=== PATIENT | female | born 1975 | race Caucasian/White ===

== ENCOUNTER 2023-08-26 07:15 | Emergency (ER) | payer BC, SELFPAY ==
[2023-08-26] VITALS (9 sets, daily range): BP systolic 116–140; BP diastolic 70–85; BMI 29.3
[2023-08-26] MEDS: NITROSTAT (SUBLINGUAL) 0.400000000000000022 MG SL (07:53)
[2023-08-26] MEDS: NSS 1000 IV (07:55)
[2023-08-26 08:07] LABS: % Basophils 1.3 % (0-2); % Eosinophils 6.5 % (0-6); % Immature Granulocytes 0.2 % (0-0.5); % Lymphocytes 25.7 % (20.5-51.1); % Monocytes 9.1 % (1.7-9.3); % Neutrophils 57.2 % (42.2-75.2); Absolute Basophils 0.1 10^3/uL (0-0.2); Absolute Eosinophils 0.6 10^3/uL (0-0.7); Absolute Lymphocytes 2.2 10^3/uL (1.2-3.4); Absolute Monocytes 0.8 10^3/uL (0.1-0.6); Absolute Neutrophils 4.9 10^3/uL (1.4-6.5); Hematocrit 43.1 % (37.0-47.0); Hemoglobin 14.6 g/dL (12.0-16.0); Mean Corp Hgb Conc. 33.9 g/dL (33.0-37.0); Mean Corpuscular Hgb 29.1 pg (27.0-31.0); Mean Platelet Volume 9.9 fL (7.4-10.4); Nucleated Red Blood Cells % 0 %; Platelet Count 335 10^3/uL (130-400); Red Blood Cell Count 5.01 10^6/uL (4.20-5.40); Red Cell Dist. Width 13.5 % (11.5-14.5); White Blood Cell Count 8.6 10^3/uL (4.8-10.8)
--- NOTE | 2023-08-26 08:08 | ED.GENMED ---
History of Present Illness
General
Chief Complaint: Abdominal Pain
Source: patient
Exam Limitations: none
Time Seen by Provider: 08/26/23 07:35
Nursing documentation reviewed up to this point in time: agreed with
Travel History
Have you had any contact with someone who has COVID-19?: No
Do you have any symptoms of coronavirus? Fever > 100 degrees, chills, cough, shortness of breath, sore throat, loss of taste or smell, muscle aches, or headache?: No
History of Present Illness
History of Present Illness:
48 yo female w h/o GERD, Schatzki ring needing dilation several times, last time 2019, food bolus, esophageal spasms, many food allergies, states since 3 p.m. yesterday after eating an Uncrustable sandwich had itching in throat and ears, 20 minutes
later started with 'esophageal spasms, ripping pain'all up in my chest, my left upper back and left ribs.' Pain waxes and wanes 3-6/10 worse with frequent 'spasms.' Worse when drinks anything, laying back, standing, better leaning forward. This a.m.
took a sip of water and pain 'shot across the back of my neck.' Took Benadryl, Mariam, Pepcid x 4 in the past 12 hours and Carafate with little relief only with Pepcid.
Denies SOB, n/v/d, is constipated.
She does take Ibuprofen 400 mg 3-4 times a day for leg and back pain on the days she works (3 days a week) which she's been doing for years.
Last upper endoscopy 2019 with stretching of esophageal ring, states it was neg for eosinophilic esophagitis.
Colonoscopy 2019
Past History
Past History
ED Past Medical History: GERD (Schazki ring needed dilatation several times, esophageal spasms) and Other (numerous food allergies)
ED Past Surgical History: None
Social History
Tobacco: Non-smoker
Alcohol: None
Drug: None
Personal:
Living: with family
Review of Systems
Review of Systems
Allergies reviewed?: Yes
All Other Systems: ROS reviewed and negative except as documented in HPI and ROS
Constitutional: Denies fever or chills
Respiratory: Denies trouble breathing
Cardiac: Reports chest pain (left upper back and left rib pain also coming is 'spasms' worse with drinking even small amount of water)
ABD/GI: Denies abdominal pain, nausea, vomiting, diarrhea or constipated
: Denies dysuria
Musculoskeletal: Reports no symptoms
Skin: Reports no symptoms
Neurological: Reports no symptoms
Phy Exam
Physical Exam
Physical Exam:
GENERAL:Appears mildly to moderately uncomfortable due to 'spasms' of pain. A&Ox3.
CONSTITUTIONAL: Afebrile.
EYES: clear, conjunctivae normal
Neck: Supple
ENMT: moist mucus membranes, Pharynx nl
RESPIRATORY: Regular respirations, nonlabored, lungs clear.
CARDIOVASCULAR: Regular rate and rhythm, no murmurs, no rubs.
GI: Soft, nontender, normal BS
MUSCULOSKELETAL: Moves with ease. Well perfused.
SKIN: Warm, dry, pink
PSYCH: Normal mood and affect. Well kept, interactive and appropriate
NEUROLOGIC: Awake, alert and oriented. No focal neurological deficits
Course
Orders/Labs/Results
Orders:
Orders
08/26/23 07:47
0.9% Sodium Chloride 1000 ml [Nss] 1,000 ml IV BOLUS
Test Result ONCE
08/26/23 07:48
Nitroglycerin Sublingual [Nitrostat (Sublingual)] 0.4 mg SL NOW STA
08/26/23 07:56
Complete Blood Count/With Diff Urgent
Comprehensive Metabolic Panel Urgent
HCG, Serum Qualitative Screen Urgent
Lipase Urgent
08/26/23 08:17
CR Chest - 2 Views Urgent
Comment:
Reason For Exam: chest, upper back pains
08/26/23 08:34
Mag Hydrox/Al Hydrox/Simeth [Maalox] 30 ml Phenobarb/Hyoscy/Atropine/Scop [] 10 ml Viscous Lidocaine 2% [Xylocaine Viscous Cup] 10 ml PO NOW
08/26/23 08:47
Mag Hydrox/Al Hydrox/Simeth [Maalox] 30 ml .ROUTE .STK-MED ONE
Phenobarb/Hyoscy/Atropine/Scop [] 10 ml .ROUTE .STK-MED ONE
08/26/23 08:48
Viscous Lidocaine 2% [Xylocaine Viscous Cup] 15 ml .ROUTE .STK-MED ONE
08/26/23 09:01
Troponin I Urgent
08/26/23 09:23
Electrocardiogram (*1) Urgent
Reason for Study: Chest Pain
EKG- Treatment ONCE
08/26/23 10:41
Barium Swallow [RF Pharynx/cervical Esophagus] Urgent
Comment:
Reason For Exam: pain with swallowing
08/26/23 10:43
Acetaminophen 1000MG/100Ml [Ofirmev] 1,000 mg in 100 ml IV ONCE
Acetaminophen IV Indication:: Ileus/Delayed Bowel Func.
08/26/23 10:44
Ondansetron Injectable [Zofran] 4 mg IV NOW STA
Abnormal Lab Results
08/26/23
07:56
Absolute Monos (auto) 0.8 H 10^3/uL
(0.1-0.6)
Eosinophils % 6.5 H %
(0-6)
08/26/23 07:56
08/26/23 07:56
Vital Signs
Initial and Last Documented VS:
Initial Vital Signs
Temp Pulse Resp BP Pulse Ox
98.7 F 77 18 134/79 99
08/26/23 07:22 08/26/23 07:22 08/26/23 07:22 08/26/23 07:22 08/26/23 07:22
Last Documented Vital Signs
Temp Pulse Resp BP Pulse Ox
98.7 F 67 14 116/74 98
08/26/23 07:22 08/26/23 13:00 08/26/23 11:15 08/26/23 13:00 08/26/23 08:30
MDM/Problems Addressed
Differential Diagnosis Includes:
esophageal spasm, GERD, ACS
MDM/Problems Addressed:
48 yo female w h/o GERD, Schatzki ring needing dilation several times, last time 2019, food bolus, esophageal spasms, many food allergies, states since 3 p.m. yesterday after eating an Uncrustable sandwich had itching in throat and ears, 20 minutes
later started with 'esophageal spasms, ripping pain'all up in my chest, my left upper back and left ribs.' Pain waxes and wanes 3-6/10 worse with frequent 'spasms.' Worse when drinks anything, laying back, standing, better leaning forward. This a.m.
took a sip of water and pain 'shot across the back of my neck.' Took Benadryl, Mariam, Pepcid x 4 in the past 12 hours and Carafate with little relief only with Pepcid.
Denies SOB, n/v/d, is constipated.
She does take Ibuprofen 400 mg at least TID during her 3 day a week work days for sciatica and leg pain which she's been doing for years.
Last upper endoscopy 2019 with stretching of esophageal ring, states it was neg for eosinophilic esophagitis.
Colonoscopy 2019
Pt in mild distress with spasms of pain chest, upper back, neck.
08/26/2023 0800 AM
Case discussed with Dr. Baldwin: Trial of NTG given
08/26/2023 0834 AM
Patient states after nitroglycerin
Pain resolved after 4 minutes for about 15 minutes but is coming back again. Will give a GI cocktail
08/26/2023 0913 AM
Patient states the act of swallowing the GI cocktail made her pain worse
08/26/2023 1023 AM
Still no relief after GI cocktail
Consulted GI Dr. Aldana who will be in to examine patient. He requested barium swallow in the meantime.
Patient is complaining of headache and nausea, Ofirmev IV and Zofran IV ordered
08/26/2023 1210 PM IMPRESSION:
Barium swallow report read: There is a Schatzki's ring just above the esophagogastric junction at which point the esophagus distends to only approximately 8 mm. A 1/2 inch barium pill did not pass through this Schatzki's ring
GI Dr. Aldana in with patient, states will need repeat EGD for eval +/- dilation, but this can be arranged as OP.
Plan: Rx for LIQUID Carafate sent to pt pharmacy. Follow up with GI
*Critical Care Note
Total Time (30-74mins, 75-104mins- exclusive of procedures): Not Applicable
ED Attending Note
-
Portions of this chart may have been created with voice recognition software.� Occasional wrong word or��sound alike� substitutions may have occurred due to the inherent limitations of voice recognition software.
Discharge Plan
Departure
Patient Disposition: Home (Routine Discharge)
Date of Disposition: 08/26/23
Time of Disposition: 13:38
Patient with high blood pressure during this ER visit?: No
Condition: Fair
Discharge Problem:
H/O esophageal spasm, DOS (diffuse esophageal spasm)
Instructions: Dysphagia, Esophageal Manometry
Prescriptions:
New
sucralfate [Carafate] 100 mg/mL suspension
10 ml PO ACHS Qty: 1000 0RF
No Action
ascorbic acid (vitamin C) [Vitamin C] 500 MG tablet
500 mg PO DAILY
magnesium 250 MG tablet
250 mg PO DAILY
albuterol sulfate 1 PUFF HFA aerosol inhaler
2 puff inhalation R Q4HPRN PRN (Reason: asthma)
fexofenadine [Mariam] 180 mg Tablet
180 mg PO DAILY
pantoprazole [Protonix] 40 mg Tablet,Delayed Release (Dr/Ec)
40 mg PO DAILY PRN (Reason: stomach issues)
ferrous sulfate [iron] 325 mg (65 mg iron) Tablet
325 mg PO DAILY
docusate sodium [Colace] 100 mg Capsule
100 mg PO DAILY PRN (Reason: constipation)
vitamin B complex [B Complete] Tablet
1 tab PO DAILY
fluticasone propionate [Flonase] 50 mcg/actuation [place],Suspension
1 spray INTRANASAL DAILY PRN (Reason: allergies)
cinnamon bark [Cinnamon] 500 mg Capsule
500 mg PO DAILY
cholecalciferol (vitamin D3) [Vitamin D3] 125 mcg (5,000 unit) Tablet
125 mcg PO DAILY
Referrals:
Pamela Vuong CRNP [Family Provider] -
Tyrel Aldana MD [Active] - Next open appointment
Activity Restrictions/Additional Instructions:
As discussed with Dr. Aldana, follow up with GI on an out patient basis as you may need motility testing.
Use your Carafate in the meantime.
I sent a prescription to your pharmacy for liquid Carafate.
Interventions
Interventions:
*Risk Screen - Suicide Last Done: 08/26/23 07:22
*General Assessment Last Done: 08/26/23 07:22
*Neglect/Abuse Screening Last Done: 08/26/23 07:22
ED- Fall Risk Assessment Last Done: 08/26/23 07:40
*ED COVID-19 Vaccine History Last Done: 08/26/23 07:22
*Nursing Disposition Last Done: 08/26/23 13:47
JG-Lsjswj-Qzhtejaghu Assessment Last Done: 08/26/23 07:40
ED- Cardiac Assessment Last Done: 08/26/23 07:40
ED- Pulmonary Assessment Last Done: 08/26/23 07:40
ED-Skin Assessment Last Done: 08/26/23 07:40
Discharge Date and Time
Discharge Date/Time: 08/26/23 13:48
[2023-08-26 08:16] LABS: HCG, Serum Qualitative Screen Negative
[2023-08-26 08:20] LABS: ALT (SGPT) 18 U/L (0-35); AST (SGOT) 30 U/L (14-36); Albumin 4.8 g/dl (3.5-5.0); Alkaline Phosphatase 76 U/L (38-126); Blood Urea Nitrogen 15 mg/dl (7-17); Calcium 9.8 mg/dl (8.4-10.2); Carbon Dioxide 23 mmol/L (22-30); Chloride 106 mmol/L (98-107); Glucose 90 mg/dl (70-99); Lipase 101 U/L (23-300); Potassium 4.3 mmol/L (3.5-5.1); Sodium 136 mmol/L (135-145); Total Bilirubin 0.7 mg/dl (0.2-1.3); eGFR > 60.00
[2023-08-26] MEDS: MAALOX 50 PO (08:52)
[2023-08-26 09:35] LABS: Troponin I < 0.012 ng/ml
[2023-08-26] MEDS: ZOFRAN 4 MG IV (10:55)
[2023-08-26] MEDS: OFIRMEV 100 IV (10:55)
--- NOTE | 2023-08-26 14:23 | CON.GI ---
Consultation
-
Date/Time Consultation Requested: 08/26/2023
Date/Time Consultation Performed: 08/26/2023
Performing Provider: Tyrel Aldana
Reason for Consultation: esophageal spasm / pain
Medical History
Chief Complaint / HPI
Chief Complaint: esophageal spasm
History of Present Illness:
Patient is a 48-year-old female with history of Schatzki's ring, food impaction, GERD, and previous ER visit with chest pain who presents with chest pain after swallow. She complains of pain after eating sandwich yesterday. Pain is located in her
chest and describes her pain as 'ripping pain'. She continued to have pain for hours. She denies vomiting. Her pain improved but recurred after drinking some water this morning and came to the ER. She had episode of impaction in 2018 which
required endoscopic disimpaction (gentle push into the stomach). A mild Schatzki's ring was noted during the endoscopy and balloon dilation was performed. She takes Protonix few times a week with Tums. She does admit to significant NSAID use but
she reports this was for years.
Past Medical History
Past Medical History: GERD and Other
Past Surgical History: None
Social History
Tobacco: Non-Smoker
Alcohol: None
Family History
Family History: Reviewed & Not Pertinent
Allergies / Home Medications
Allergy/AdvReac Type Severity Reaction Status Date / Time
Fish Containing Products Allergy Anaphylaxis Verified 08/26/23 07:38
environmental Allergy itching, Uncoded 08/26/23 07:38
asthma
nuts Allergy Anaphylaxis Uncoded 08/26/23 07:38
seasonal allergies Allergy itching, Uncoded 08/26/23 07:38
asthma
Medication Instructions Recorded
albuterol sulfate 90 mcg/actuation 2 puff inhalation R Q4HPRN PRN 09/06/17
aerosol inhaler asthma
ascorbic acid (vitamin C) 500 mg 500 mg PO DAILY 09/06/17
tablet (Vitamin C)
magnesium 250 mg tablet 250 mg PO DAILY 09/06/17
amoxicillin 875 mg-potassium 1 tab PO BID 12/29/22
clavulanate 125 mg tablet
cholecalciferol (vitamin D3) 125 125 mcg PO DAILY 12/29/22
mcg (5,000 unit) tablet (Vitamin
D3)
cinnamon bark 500 mg capsule 500 mg PO DAILY 12/29/22
(Cinnamon)
docusate sodium 100 mg capsule 100 mg PO DAILY PRN constipation 12/29/22
(Colace)
ferrous sulfate 325 mg (65 mg 325 mg PO DAILY 12/29/22
iron) tablet (iron)
fexofenadine 180 mg tablet 180 mg PO DAILY 12/29/22
fluticasone propionate 50 1 spray intranasal DAILY PRN 12/29/22
mcg/actuation nasal allergies
spray,suspension
pantoprazole 40 mg tablet,delayed 40 mg PO DAILY PRN stomach issues 12/29/22
release (Protonix)
prednisone 10 mg tablet See Rx Instructions .Route 12/29/22
.COMPLEX #30 tabs
vitamin B complex 1 tab PO DAILY 12/29/22
sucralfate 100 mg/mL oral 10 ml PO ACHS #1,000 mL 08/26/23
suspension (Carafate)
Review of Systems
Vital Signs
Temp Pulse Resp BP Pulse Ox
98.7 F 67 14 116/74 98
08/26/23 07:22 08/26/23 13:00 08/26/23 11:15 08/26/23 13:00 08/26/23 08:30
Physical Exam
Exam
General: Well Developed and Well Nourished
HEENT: Normocephalic
Respiratory: Clear
Cardiac: S1/S2
GI: Soft, Non Tender and Non Distended
Results
WBC 8.6 10^3/uL (4.8-10.8) 08/26/23 07:56
Hgb 14.6 g/dL (12.0-16.0) 08/26/23 07:56
Hct 43.1 % (37.0-47.0) 08/26/23 07:56
MCV 86.0 fL (81.0-99.0) 08/26/23 07:56
Plt Count 335 10^3/uL (130-400) 08/26/23 07:56
Absolute Neuts (auto) 4.9 10^3/uL (1.4-6.5) 08/26/23 07:56
Sodium 136 mmol/L (135-145) 08/26/23 07:56
Potassium 4.3 mmol/L (3.5-5.1) 08/26/23 07:56
Chloride 106 mmol/L (98-107) 08/26/23 07:56
Carbon Dioxide 23 mmol/L (22-30) 08/26/23 07:56
BUN 15 mg/dl (7-17) 08/26/23 07:56
Creatinine 0.9 mg/dL (0.6-1.0) 08/26/23 07:56
Calcium 9.8 mg/dl (8.4-10.2) 08/26/23 07:56
Total Bilirubin 0.7 mg/dl (0.2-1.3) 08/26/23 07:56
AST 30 U/L (14-36) 08/26/23 07:56
ALT 18 U/L (0-35) 08/26/23 07:56
Alkaline Phosphatase 76 U/L (38-126) 08/26/23 07:56
Lipase 101 U/L (23-300) 08/26/23 07:56
Diagnostic Image Results:
Prior GI Procedures:
EGD:
Colonoscopy:
Assessment / Plan
-
Patient is a 48-year-old female with history of Schatzki's ring, food impaction, GERD, previous ER visit with chest pain presents with pain after swallow.
Impression / Rec:
1. Pain after swallow - Patient complains of chest pain after she ate sandwich yesterday. Her pain is located in chest rating to her throat and her back. Review of her records show that she had similar presentation in 2019. She has history of
Schatzki's ring and food impaction which required endoscopic disimpaction (gentle push into her stomach) in 2018. Her Schatzki's ring was mild, measuring at 13 mm and this was dilated up to 15 mm at that time. Ba swallow done in ER, which showed
Schatzki's ring, esophagus distending to ~ 8mm. Barium pill did not pass through the Schatzki's ring. Minimal concern for food impaction at this time. Will need repeat EGD for eval +/- dilation, but this can be arranged as OP.
Total Time Spent with Patient (in minutes): 55
-
-
Thank you for consultation and allowing me to participate in the patient's care. Please call the propulsion motor and generator repairer GI physician during the after hours with any questions or concerns.
== END 2023-08-26 13:48 | disposition home or self-care (01) ==
LOC: EMR 07:15
PROVIDERS: Registered Nurse; EMERGENCY PHYSICIAN Emergency Medicine; FAMILY PHYSICIAN Nurse Practitioner Adult Health; OTHER PHYSICIAN Internal Medicine Gastroenterology
DX: K22.4 Dyskinesia of esophagus (principal); K22.2 Esophageal obstruction; K21.9 Gastro-esophageal reflux disease without esophagitis
CPT/HCPCS: 99285; 96374; 96375; 96361; 71046; 74210; 80053; 83690; 84484; 84703; 85025; 93005

== ENCOUNTER 2023-08-27 12:18 | Emergency (ER) | payer BC, SELFPAY ==
--- NOTE | 2023-08-27 12:27 | ED.GENMED ---
History of Present Illness
<Michelle Stubbs GLOBAL MANAGER - Last Filed: 08/27/23 17:37>
General
Chief Complaint: Abdominal Pain
Source: patient
Exam Limitations: none
Time Seen by Provider: 08/27/23 12:21
Nursing documentation reviewed up to this point in time: agreed with
History of Present Illness
History of Present Illness:
48 yo female with right side abdominal pain. Pt w h/o GERD, Schatzki ring needing dilation several times, last time 2019, food bolus, esophageal spasms, many food allergies, was seen here yesterday by this examiner for esophageal spasms, evaluated
by GI, discharged to follow-up with GI as an outpatient for possible motility testing.
She is back today stating pain is now in the mid right to upper quadrant of abdomen.
Past History
<Michelle Stubsb, GLOBAL MANAGER - Last Filed: 08/27/23 17:37>
Past History
ED Past Medical History: GERD and Other (allergies)
ED Past Surgical History: None
Social History
Tobacco: Non-smoker
Alcohol: None
Drug: None
Personal:
Living: with family
Review of Systems
<Michelle Stubbs, GLOBAL MANAGER - Last Filed: 08/27/23 17:37>
Review of Systems
Allergies reviewed?: Yes
All Other Systems: ROS reviewed and negative except as documented in HPI and ROS
Constitutional: Denies fever or chills
Respiratory: Denies trouble breathing
Cardiac: Denies chest pain
ABD/GI: Reports abdominal pain and constipated; Denies nausea, vomiting, diarrhea, bloody stools or black stools
: Denies dysuria, difficulty voiding or urgency
Musculoskeletal: Reports no symptoms
Skin: Reports no symptoms
Neurological: Reports no symptoms
Phy Exam
<Michelle Stubbs GLOBAL MANAGER - Last Filed: 08/27/23 17:37>
Physical Exam
Physical Exam:
GENERAL: No acute distress. A&Ox3.
CONSTITUTIONAL: Afebrile.
EYES:clear, conjunctivae normal
ENMT: moist mucus membranes, Pharynx nl
RESPIRATORY: Regular respirations, nonlabored, lungs clear.
CARDIOVASCULAR: Regular rate and rhythm, no murmurs, no rubs.
GI: Soft, tender right side abdomen, normal BS
MUSCULOSKELETAL: Moves with ease. Well perfused.
SKIN: Warm, dry, pink
PSYCH: Normal mood and affect. Well kept, interactive and appropriate
NEUROLOGIC: Awake, alert and oriented. No focal neurological deficits
Course
Catielt;Michelle Stubbs, GLOBAL MANAGER - Last Filed: 08/27/23 17:37>
Orders/Labs/Results
Orders:
Orders
08/27/23 12:22
Hydrocortisone Sod Succinate [Solu-Cortef] 200 mg IV NOW STA
08/27/23 12:26
CT Abd/pel W Iv And Oral Contr Urgent
Comment:
Reason For Exam: right side abd pain
0.9% Sodium Chloride 1000 ml [Nss] 1,000 ml IV BOLUS
Iohexol [Omnipaque] See Protocol PO NOW STA
08/27/23 13:08
Diphenhydramine [Benadryl] 50 mg PO NOW STA
08/27/23 14:17
Ondansetron Injectable [Zofran] 4 mg IV NOW STA
08/27/23 14:18
Ondansetron Injectable [Zofran] 4 mg .ROUTE .STK-MED ONE
08/27/23 12:23
08/27/23 12:22
Vital Signs
Initial and Last Documented VS:
Initial Vital Signs
Temp Pulse Resp BP Pulse Ox
98.1 F 70 16 109/79 99
08/27/23 13:04 08/27/23 13:04 08/27/23 13:04 08/27/23 13:04 08/27/23 13:04
Last Documented Vital Signs
Temp Pulse Resp BP Pulse Ox
98.1 F 70 16 109/79 99
08/27/23 13:04 08/27/23 13:04 08/27/23 13:04 08/27/23 13:04 08/27/23 13:04
Coil Taper consulted with Physician
Coil Taper consulted with physician?: Yes
Name of Physician Consulted: Leon
<Horacio Quintero, DO - Last Filed: 08/27/23 12:48>
Orders/Labs/Results
Orders:
Orders
08/27/23 12:22
Hydrocortisone Sod Succinate [Solu-Cortef] 200 mg IV NOW STA
08/27/23 12:26
CT Abd/pel W Iv And Oral Contr Urgent
Comment:
Reason For Exam: right side abd pain
0.9% Sodium Chloride 1000 ml [Nss] 1,000 ml IV BOLUS
Iohexol [Omnipaque] See Protocol PO NOW STA
08/27/23 13:08
Diphenhydramine [Benadryl] 50 mg PO NOW STA
08/27/23 14:17
Ondansetron Injectable [Zofran] 4 mg IV NOW STA
08/27/23 14:18
Ondansetron Injectable [Zofran] 4 mg .ROUTE .STK-MED ONE
08/27/23 12:23
08/27/23 12:22
Vital Signs
Initial and Last Documented VS:
Initial Vital Signs
Temp Pulse Resp BP Pulse Ox
98.1 F 70 16 109/79 99
08/27/23 13:04 08/27/23 13:04 08/27/23 13:04 08/27/23 13:04 08/27/23 13:04
Last Documented Vital Signs
Temp Pulse Resp BP Pulse Ox
98.1 F 70 16 109/79 99
08/27/23 13:04 08/27/23 13:04 08/27/23 13:04 08/27/23 13:04 08/27/23 13:04
<Michelle Stubbs, GLOBAL MANAGER - Last Filed: 08/27/23 17:37>
MDM/Problems Addressed
Differential Diagnosis Includes:
cholecystitis, biliary colic, appendicitis
MDM/Problems Addressed:
48 yo female with right side abdominal pain. Pt w h/o GERD, Schatzki ring needing dilation several times, last time 2019, food bolus, esophageal spasms, many food allergies, was seen here yesterday by this examiner for esophageal spasms, evaluated
by GI, discharged to follow-up with GI as an outpatient for possible motility testing.
She is back today stating pain is now in the mid right to upper quadrant of abdomen.
Dr. Quintero in to evaluate
08/27/2023 1309 PM
Cancel labs for today since just had them yesterday
Agrees with CT abd/pelvis w po and IV contrast. Needs prep for CT (allergy to shellfish, never had IV dye in past)
Patient request p.o. Benadryl for IV contrast prep instead of IV as the last time she had IV Benadryl she did not like the way it made her feel. This is reasonable
08/27/[address] abdomen pelvis with p.o. and IV contrast radiology report reviewed: IMPRESSION:
Limited secondary to a significant amount of imaging artifact as a result of the presence of dense enteric contrast material remaining, especially in the region of the cecum and ascending colon, from reported barium enema examination performed the
previous day. This resulted in nondiagnostic examination especially involving the mid and lower abdominal contents as well as much of the pelvic contents. As far as visualized, no definite evidence of free air. No upper abdominal ascites. No bowel
distention as far as visualized to suggest obstruction. No obstructive uropathy.
Pt discharged to follow up with GI
<Michelle Stubbs, GLOBAL MANAGER - Last Filed: 08/27/23 17:37>
*Critical Care Note
Total Time (30-74mins, 75-104mins- exclusive of procedures): Not Applicable
ED Attending Note
<Michelle Stubbs GLOBAL MANAGER - Last Filed: 08/27/23 17:37>
-
Portions of this chart may have been created with voice recognition software.� Occasional wrong word or��sound alike� substitutions may have occurred due to the inherent limitations of voice recognition software.
<Horacio Quintero DO - Last Filed: 08/27/23 12:48>
ED Attending Note
Patient seen and examined by attending physician: Yes
I performed the substantive portion of visit, reviewed & personally made and approve the management plan that is documented in note by myself or AKIN.: Yes
ED Attending Note:
I have seen and evaluated the patient with a [id number] encounter. I have spoken to the advance practicer provider and involved in the medical history, the physical exam, medical decision making.
Evaluation and management service: agree unless noted differently below.
Results interpretation: agree unless noted differently below.
Focused HPI: 48-year-old female presenting with right abdominal pain. Patient was evaluated yesterday for chest pain and it was believed to be related to esophageal spasm and Schatzki ring
Physical exam: Mild right abdominal tenderness. No rebound
Medical Decision Making: Given persistent symptoms, will obtain CT
Discharge Plan
Departure
Patient Disposition: Home (Routine Discharge)
Date of Disposition: 08/27/23
Time of Disposition: 15:59
Patient with high blood pressure during this ER visit?: No
Condition: Good
Discharge Problem:
Abdominal pain
Instructions: Abdominal Pain
Prescriptions:
No Action
ascorbic acid (vitamin C) [Vitamin C] 500 MG tablet
500 mg PO DAILY
magnesium 250 MG tablet
250 mg PO DAILY
albuterol sulfate 1 PUFF HFA aerosol inhaler
2 puff inhalation R Q4HPRN PRN (Reason: asthma)
fexofenadine [Mariam] 180 mg Tablet
180 mg PO DAILY
pantoprazole [Protonix] 40 mg Tablet,Delayed Release (Dr/Ec)
40 mg PO DAILY PRN (Reason: stomach issues)
ferrous sulfate [iron] 325 mg (65 mg iron) Tablet
325 mg PO DAILY
docusate sodium [Colace] 100 mg Capsule
100 mg PO DAILY PRN (Reason: constipation)
vitamin B complex [B Complete] Tablet
1 tab PO DAILY
fluticasone propionate [Flonase] 50 mcg/actuation [place],Suspension
1 spray INTRANASAL DAILY PRN (Reason: allergies)
cinnamon bark [Cinnamon] 500 mg Capsule
500 mg PO DAILY
cholecalciferol (vitamin D3) [Vitamin D3] 125 mcg (5,000 unit) Tablet
125 mcg PO DAILY
sucralfate [Carafate] 100 mg/mL suspension
10 ml PO ACHS Qty: 1000 0RF
Referrals:
Pamela Vuong CRNP [Family Provider] -
Trang Au MD [Active] - Next open appointment
Activity Restrictions/Additional Instructions:
As we discussed, follow-up with GI Dr. Au or Dr. Olivares or Dr. Thomas
Interventions
Interventions:
*Risk Screen - Suicide Last Done: 08/27/23 12:31
*General Assessment Last Done: 08/27/23 12:30
*Neglect/Abuse Screening Last Done: 08/27/23 12:31
ED- Fall Risk Assessment Last Done: 08/27/23 12:32
*ED COVID-19 Vaccine History Last Done: 08/27/23 12:30
*Nursing Disposition Last Done: 08/27/23 16:22
ZQ-Uinltw-Elsyhizgrd Assessment Last Done: 08/27/23 12:33
Discharge Date and Time
Discharge Date/Time: 08/27/23 16:22
[2023-08-27] MEDS: OMNIPAQUE 50 ML PO (12:49)
[2023-08-27] MEDS: NSS 1000 IV (12:50)
[2023-08-27 13:01] VITALS: BMI 28.5
[2023-08-27 13:04] VITALS: BP 109/79
[2023-08-27] MEDS: BENADRYL 50 MG PO (13:15)
[2023-08-27] MEDS: SOLU-CORTEF 200 MG IV (13:15)
[2023-08-27] MEDS: ZOFRAN 4 MG IV (14:19)
== END 2023-08-27 16:22 | disposition home or self-care (01) ==
LOC: EMR 12:18
PROVIDERS: EMERGENCY PHYSICIAN Student in an Organized Health Care Education/Training Program; FAMILY PHYSICIAN Nurse Practitioner Adult Health
DX: R10.9 Unspecified abdominal pain (principal); K21.9 Gastro-esophageal reflux disease without esophagitis; K22.2 Esophageal obstruction; Z91.013 Allergy to seafood
CPT/HCPCS: 99284; 96374; 96375; 96361; 74177; Q9967

== ENCOUNTER → 2023-09-21 10:52 | Outpatient (REF) | payer BC, SELFPAY | LOC: HWRAD 10:52 | PROVIDERS: ATTENDING PHYSICIAN Registered Nurse; FAMILY PHYSICIAN Nurse Practitioner Adult Health | DX: M54.12 Radiculopathy, cervical region (principal); M54.16 Radiculopathy, lumbar region | CPT/HCPCS: 72040; 72110 ==

== ENCOUNTER → 2023-10-04 06:40 | Day surgery (SDC) | payer BC, SELFPAY | LOC: GI 06:40 | PROVIDERS: ATTENDING PHYSICIAN Internal Medicine Gastroenterology; FAMILY PHYSICIAN Nurse Practitioner Adult Health | DX: Z12.11 Encounter for screening for malignant neoplasm of colon (principal); R13.10 Dysphagia, unspecified; K22.2 Esophageal obstruction; K22.89 Other specified disease of esophagus; K31.89 Other diseases of stomach and duodenum; K29.50 Unspecified chronic gastritis without bleeding; B96.81 Helicobacter pylori [H. pylori] as the cause of diseases classified elsewhere; K64.8 Other hemorrhoids; Z83.719 Family history of colon polyps, unspecified | CPT/HCPCS: 43249; G0105; 88305; 88341; 88342 ==

== ENCOUNTER → 2023-12-11 13:47 | Outpatient (REF) | payer BC, SELFPAY ==
[2023-12-11 18:33] LABS: Urine Albumin Negative (Neg - Trace); Urine Bilirubin Negative (Negative); Urine Character Clear (Clear); Urine Color Yellow; Urine Glucose Negative (Negative); Urine Ketone Negative (Negative); Urine Leukocyte 1+ (Negative); Urine Nitrite Negative (Negative); Urine Occult Blood Negative (Negative); Urine Urobilinogen Negative (Neg - 1+)
[2023-12-11 18:42] LABS: Urine Bacteria Few (Negative); Urine Red Blood Cell 0-2 /HPF (0-2)
== END ==
LOC: CLAB 13:47
PROVIDERS: ATTENDING PHYSICIAN Registered Nurse
DX: R39.9 Unspecified symptoms and signs involving the genitourinary system (principal)
CPT/HCPCS: 81003; 81015; 87086

== ENCOUNTER → 2024-02-20 11:48 | Outpatient (REF) | payer BC, SELFPAY ==
[2024-02-20 13:27] LABS: ALT (SGPT) 15 U/L (0-35); AST (SGOT) 27 U/L (14-36); Albumin 4.8 g/dl (3.5-5.0); Alkaline Phosphatase 74 U/L (38-126); Blood Urea Nitrogen 11 mg/dl (7-17); Calcium 10.1 mg/dl (8.4-10.2); Carbon Dioxide 28 mmol/L (22-30); Chloride 101 mmol/L (98-107); Glucose 79 mg/dl (70-99); HDL Cholesterol 103 mg/dl; Iron 66 ug/dl (37-170); LDL Cholesterol, Calculated 141 mg/dl; Potassium 4.5 mmol/L (3.5-5.1); Sodium 139 mmol/L (135-145); Total Bilirubin 0.5 mg/dl (0.2-1.3); Total Cholesterol 254 mg/dl (50-199); Total Protein 7.5 g/dl (6.3-8.2); Triglyceride 54 mg/dl (10-149); Very Low Density Lipoprotein 10 mg/dl (0-30); eGFR > 60.00
[2024-02-20 13:30] LABS: % Basophils 1.9 % (0-2); % Immature Granulocytes 0.2 % (0-0.5); % Lymphocytes 26.2 % (20.5-51.1); % Monocytes 9.5 % (1.7-9.3); % Neutrophils 56.2 % (42.2-75.2); Absolute Basophils 0.2 10^3/uL (0-0.2); Absolute Eosinophils 0.5 10^3/uL (0-0.7); Absolute Lymphocytes 2.2 10^3/uL (1.2-3.4); Absolute Monocytes 0.8 10^3/uL (0.1-0.6); Absolute Neutrophils 4.7 10^3/uL (1.4-6.5); Hematocrit 37.7 % (37.0-47.0); Hemoglobin 12.3 g/dL (12.0-16.0); Mean Corp Hgb Conc. 32.6 g/dL (33.0-37.0); Mean Corpuscular Hgb 29.6 pg (27.0-31.0); Mean Corpuscular Volume 90.8 fL (81.0-99.0); Mean Platelet Volume 10.2 fL (7.4-10.4); Nucleated Red Blood Cells % 0 %; Platelet Count 358 10^3/uL (130-400); Red Blood Cell Count 4.15 10^6/uL (4.20-5.40); Red Cell Dist. Width 13.6 % (11.5-14.5); White Blood Cell Count 8.4 10^3/uL (4.8-10.8)
[2024-02-20 13:37] LABS: Percent Saturation 17 % (20-50); Total Iron Binding Capacity 369 ug/dl (265-497)
[2024-02-20 13:59] LABS: TSH Reflex To Free T4 1.39 uIU/ml (0.47-4.68)
[2024-02-20 14:03] LABS: Ferritin 6.8 ng/ml (6.24-137)
[2024-02-20 14:18] LABS: Erythrocyte Sed Rate 21 mm/hour (0-20)
== END ==
LOC: REG 11:48
PROVIDERS: ATTENDING PHYSICIAN Nurse Practitioner Adult Health
DX: E61.1 Iron deficiency (principal); R70.0 Elevated erythrocyte sedimentation rate; Z00.00 Encounter for general adult medical examination without abnormal findings; Z13.220 Encounter for screening for lipoid disorders; D72.829 Elevated white blood cell count, unspecified; A04.8 Other specified bacterial intestinal infections
CPT/HCPCS: 36415; 80053; 80061; 82728; 83540; 83550; 84443; 85025; 85652

== ENCOUNTER → 2024-02-29 18:43 | Outpatient (REF) | payer BC, SELFPAY | LOC: CLAB 18:43 | PROVIDERS: ATTENDING PHYSICIAN Nurse Practitioner Adult Health | DX: J02.9 Acute pharyngitis, unspecified (principal) | CPT/HCPCS: 87070 ==

== ENCOUNTER → 2024-03-18 11:00 | Outpatient (REF) | payer BC, SELFPAY | LOC: HWWDC 11:00 | PROVIDERS: ATTENDING PHYSICIAN Nurse Practitioner Adult Health | DX: Z12.31 Encounter for screening mammogram for malignant neoplasm of breast (principal) | CPT/HCPCS: 77063; 77067 ==

== ENCOUNTER → 2024-03-29 08:28 | Outpatient (REF) | payer BC, SELFPAY | LOC: WDC 08:28 | PROVIDERS: ATTENDING PHYSICIAN Nurse Practitioner Adult Health | DX: R92.8 Other abnormal and inconclusive findings on diagnostic imaging of breast (principal) | CPT/HCPCS: 76642 ==

== ENCOUNTER 2024-07-16 11:17 | Outpatient (RCR) | payer BC, SELFPAY | END 2024-07-16 23:59 | disposition home or self-care (01) | LOC: RPT 11:17 | PROVIDERS: ATTENDING PHYSICIAN Nurse Practitioner Adult Health | DX: N39.0 Urinary tract infection, site not specified (principal); N39.3 Stress incontinence (female) (male); M62.89 Other specified disorders of muscle; R10.2 Pelvic and perineal pain; Z73.6 Limitation of activities due to disability | CPT/HCPCS: 97110; 97140; 97163; 97530 ==

== ENCOUNTER → 2024-07-19 06:52 | Outpatient (REF) | payer BC, SELFPAY ==
[2024-07-19 07:42] LABS: % Basophils 1.3 % (0-2); % Eosinophils 5.8 % (0-6); % Immature Granulocytes 0.3 % (0-0.5); % Lymphocytes 25.5 % (20.5-51.1); % Monocytes 11.6 % (1.7-9.3); % Neutrophils 55.5 % (42.2-75.2); Absolute Basophils 0.1 10^3/uL (0-0.2); Absolute Eosinophils 0.6 10^3/uL (0-0.7); Absolute Lymphocytes 2.8 10^3/uL (1.2-3.4); Absolute Monocytes 1.3 10^3/uL (0.1-0.6); Absolute Neutrophils 6.1 10^3/uL (1.4-6.5); Hematocrit 41.6 % (37.0-47.0); Hemoglobin 13.7 g/dL (12.0-16.0); Mean Corp Hgb Conc. 32.9 g/dL (33.0-37.0); Mean Corpuscular Hgb 29.1 pg (27.0-31.0); Mean Corpuscular Volume 88.5 fL (81.0-99.0); Mean Platelet Volume 9.7 fL (7.4-10.4); Nucleated Red Blood Cells % 0 %; Platelet Count 393 10^3/uL (130-400); Red Cell Dist. Width 13.8 % (11.5-14.5)
[2024-07-19 08:18] LABS: ALT (SGPT) 18 U/L (0-35); AST (SGOT) 26 U/L (14-36); Alkaline Phosphatase 81 U/L (38-126); Blood Urea Nitrogen 9 mg/dl (7-17); Calcium 9.9 mg/dl (8.4-10.2); Carbon Dioxide 23 mmol/L (22-30); Chloride 101 mmol/L (98-107); Glucose 88 mg/dl (70-99); Iron 89 ug/dl (37-170); Potassium 4.2 mmol/L (3.5-5.1); Sodium 136 mmol/L (135-145); Total Bilirubin 0.7 mg/dl (0.2-1.3); eGFR > 60.00
[2024-07-19 08:27] LABS: Percent Saturation 24 % (20-50); Total Iron Binding Capacity 369 ug/dl (265-497)
[2024-07-19 08:45] LABS: Ferritin 11.6 ng/ml (6.24-137)
[2024-07-19 08:59] LABS: Vitamin B12 966 pg/ml (239-931)
== END ==
LOC: REG 06:52
PROVIDERS: ATTENDING PHYSICIAN Nurse Practitioner Adult Health
DX: R20.2 Paresthesia of skin (principal); E61.1 Iron deficiency
CPT/HCPCS: 80053; 82607; 82728; 83540; 83550; 84443; 85025

== ENCOUNTER → 2024-07-20 07:56 | Outpatient (REF) | payer BC, SELFPAY | LOC: MRI 07:56 | PROVIDERS: ATTENDING PHYSICIAN Nurse Practitioner Adult Health | DX: R20.2 Paresthesia of skin (principal); R32 Unspecified urinary incontinence | CPT/HCPCS: 70553; A9575 ==

== ENCOUNTER → 2024-07-22 13:00 | Outpatient (REF) | payer BC, SELFPAY ==
[2024-07-22 13:59] LABS: Hematocrit 41.2 % (37.0-47.0); Hemoglobin 13.5 g/dL (12.0-16.0); Mean Corp Hgb Conc. 32.8 g/dL (33.0-37.0); Mean Corpuscular Hgb 28.5 pg (27.0-31.0); Mean Corpuscular Volume 86.9 fL (81.0-99.0); Mean Platelet Volume 9.5 fL (7.4-10.4); Platelet Count 342 10^3/uL (130-400); Red Blood Cell Count 4.74 10^6/uL (4.20-5.40); Red Cell Dist. Width 13.8 % (11.5-14.5); White Blood Cell Count 8.2 10^3/uL (4.8-10.8)
[2024-07-22 14:13] LABS: ALT (SGPT) 17 U/L (0-35); AST (SGOT) 28 U/L (14-36); Albumin 5.1 g/dl (3.5-5.0); Alkaline Phosphatase 81 U/L (38-126); Blood Urea Nitrogen 10 mg/dl (7-17); Calcium 9.9 mg/dl (8.4-10.2); Carbon Dioxide 24 mmol/L (22-30); Chloride 99 mmol/L (98-107); Glucose 86 mg/dl (70-99); Potassium 4.2 mmol/L (3.5-5.1); Sodium 134 mmol/L (135-145); Total Bilirubin 0.6 mg/dl (0.2-1.3); eGFR > 60.00
== END ==
LOC: REG 13:00
PROVIDERS: ATTENDING PHYSICIAN Physician Assistant; FAMILY PHYSICIAN Nurse Practitioner Adult Health
DX: M54.50 Low back pain, unspecified (principal)
CPT/HCPCS: 36415; 80053; 85027

== ENCOUNTER 2024-08-13 11:01 | Outpatient (RCR) | payer BC, SELFPAY | END 2024-08-13 23:59 | disposition home or self-care (01) | LOC: RPT 11:01 | PROVIDERS: ATTENDING PHYSICIAN Nurse Practitioner Adult Health | DX: N39.0 Urinary tract infection, site not specified (principal); N39.3 Stress incontinence (female) (male); M62.89 Other specified disorders of muscle; R10.2 Pelvic and perineal pain; Z73.6 Limitation of activities due to disability | CPT/HCPCS: 97140; 97530 ==

== ENCOUNTER 2024-09-09 12:07 | Outpatient (RCR) | payer BC, SELFPAY | END 2024-09-09 23:59 | disposition home or self-care (01) | LOC: RPT 12:07 | PROVIDERS: ATTENDING PHYSICIAN Nurse Practitioner Adult Health | DX: N39.0 Urinary tract infection, site not specified (principal); N39.3 Stress incontinence (female) (male); M62.89 Other specified disorders of muscle; R10.2 Pelvic and perineal pain; Z73.6 Limitation of activities due to disability | CPT/HCPCS: 97140; 97530 ==

== ENCOUNTER → 2024-09-26 11:10 | Outpatient (REF) | payer BC, SELFPAY ==
[2024-09-26 16:03] LABS: FSH 8.5 mIU/ml; Luteinizing Hormone 6.86 mIU/ml
[2024-09-26 16:17] LABS: TSH Reflex To Free T4 1.35 uIU/ml (0.47-4.68)
[2024-09-26 16:18] LABS: Estradiol 126.2 pg/ml
== END ==
LOC: HWLAB 11:10
PROVIDERS: ATTENDING PHYSICIAN Nurse Practitioner Family; FAMILY PHYSICIAN Nurse Practitioner Adult Health
DX: N95.8 Other specified menopausal and perimenopausal disorders (principal)
CPT/HCPCS: 36415; 82670; 83001; 83002; 84443

== ENCOUNTER 2024-10-02 12:58 | Outpatient (RCR) | payer BC, SELFPAY | END 2024-10-02 23:59 | disposition home or self-care (01) | LOC: RPT 12:58 | PROVIDERS: ATTENDING PHYSICIAN Nurse Practitioner Adult Health | DX: N39.0 Urinary tract infection, site not specified (principal); N39.3 Stress incontinence (female) (male); M62.89 Other specified disorders of muscle; R10.2 Pelvic and perineal pain; Z73.6 Limitation of activities due to disability | CPT/HCPCS: 76830; 76856; 97112; 97140; 97530 ==

== ENCOUNTER 2024-10-27 13:25 | Emergency (ER) | payer BC, SELFPAY ==
[2024-10-27 13:31] VITALS: BP 136/94
[2024-10-27] MEDS: ZOFRAN 4 MG IV ×2 (13:49→16:13)
[2024-10-27] MEDS: DILAUDID 0.25 MG IV (13:50)
[2024-10-27] MEDS: NSS 1000 IV ×2 (13:50→16:14)
[2024-10-27 13:57] VITALS: BMI 27.7
[2024-10-27 14:09] LABS: % Basophils 1.3 % (0-2); % Eosinophils 3.9 % (0-6); % Immature Granulocytes 0.2 % (0-0.5); % Lymphocytes 23.3 % (20.5-51.1); % Monocytes 9.7 % (1.7-9.3); % Neutrophils 61.6 % (42.2-75.2); Absolute Basophils 0.1 10^3/uL (0-0.2); Absolute Eosinophils 0.4 10^3/uL (0-0.7); Absolute Lymphocytes 2.1 10^3/uL (1.2-3.4); Absolute Monocytes 0.9 10^3/uL (0.1-0.6); Absolute Neutrophils 5.5 10^3/uL (1.4-6.5); Hematocrit 39.8 % (37.0-47.0); Hemoglobin 13.5 g/dL (12.0-16.0); Mean Corp Hgb Conc. 33.9 g/dL (33.0-37.0); Mean Corpuscular Hgb 29.7 pg (27.0-31.0); Mean Corpuscular Volume 87.7 fL (81.0-99.0); Mean Platelet Volume 9.8 fL (7.4-10.4); Nucleated Red Blood Cells % 0 %; Platelet Count 327 10^3/uL (130-400); Red Blood Cell Count 4.54 10^6/uL (4.20-5.40); Red Cell Dist. Width 13.1 % (11.5-14.5)
[2024-10-27] MEDS: TORADOL 30 MG IV (14:09)
[2024-10-27 14:18] LABS: Lactic Acid 1.1 mmol/L (0.7-2.0)
[2024-10-27 14:21] LABS: ALT (SGPT) 16 U/L (0-35); AST (SGOT) 24 U/L (14-36); Albumin 4.8 g/dl (3.5-5.0); Alkaline Phosphatase 73 U/L (38-126); Blood Urea Nitrogen 14 mg/dl (7-17); Calcium 9.7 mg/dl (8.4-10.2); Carbon Dioxide 25 mmol/L (22-30); Chloride 103 mmol/L (98-107); Estimated Creatinine Clearance 82 ml/min; Glucose 104 mg/dl (70-99); Potassium 3.9 mmol/L (3.5-5.1); Sodium 139 mmol/L (135-145); Total Bilirubin 0.7 mg/dl (0.2-1.3); Total Protein 7.8 g/dl (6.3-8.2); eGFR > 60.00
[2024-10-27 14:23] LABS: HCG, Serum Qualitative Screen Negative
[2024-10-27] MEDS: MORPHINE SULFATE 4 MG IV (14:52)
--- NOTE | 2024-10-27 15:49 | ED.GENMED ---
History of Present Illness
<Christin Guerrero PA-C - Last Filed: 10/27/24 20:29>
General
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
Source: patient
Exam Limitations: none
Time Seen by Provider: 10/27/24 13:25
Nursing documentation reviewed up to this point in time: agreed with
History of Present Illness
History of Present Illness:
49 y/o F with GERD
anemia
having ongoing lower pelvic pain issues with cramps for several months, more significantly painful x 2 months
lasting longer than just a few days aroun dovulation or menses
and hasn't had period in 2 mo and now with pretty severe spasm like pain that feels like her cervix is ripping
she also gts lightening pain in her rectum and her vagina and her pelvis
the pain is more sever ewith walking
she has tried otc meds without relief
no vaignal bleeding, discharge
had recent cultures neg for infx so unliley to be PID
has martine her gyne for this pain but never had this intensity of symptoms before
had US last month showed small ovarian cyst and thickened endometrium and is likely to have hysteroscopy soon
pt is not having diarrhea, constipation, fever, chilsl, dysuria, hematuria
she feels intense pressure
Past History
<Christin Guerrero PA-C - Last Filed: 10/27/24 20:29>
Past History
ED Past Medical History: GERD (Schazki ring needed dilatation several times, esophageal spasms) and Other (numerous food allergies)
ED Past Surgical History: None
Social History
Tobacco: Non-smoker
Alcohol: None
Drug: None
Personal:
Living: with family
Review of Systems
<Christin Guerrero PA-C - Last Filed: 10/27/24 20:29>
Review of Systems
Allergies reviewed?: Yes
All Other Systems: Not applicable
Phy Exam
<Christin Guerrero PA-C - Last Filed: 10/27/24 20:29>
Physical Exam
Physical Exam:
GENERAL: Alert ,IN MODERATE DISTRESS, ROCKING IN THE STRETCHER
EYE: pupils equal and reactive
NECK: Supple
ENT: o/p clr, mmm.
CARDIAC: Regular rate and rhythm .
LUNGS: Clear breath sounds bilaterally, no acute respiratory distress, no wheezes/rales/rhonchi
ABDOMEN: Soft, minimal suprapubic tenderness, no r/g, no cvat, normal bowel sounds
: deferred to [facility] (normal)
NEUROLOGICAL: Alert and oriented, no focal neuro deficits
SKIN: Warm and dry, skin intact.
MUSCULOSKELETAL: No edema, well perfused.
PSYCH: Normal and appropriate interaction.
Course
<Christin Guerrero PA-C - Last Filed: 10/27/24 20:29>
Orders/Labs/Results
Orders:
Orders
10/27/24 13:44
Test Result ONCE
Pelvis & Transvaginal US [US Pelvis W Transvag Combined] Urgent
Comment:
Reason For Exam: severe pelvic painm h/o ovarian cyst r/o torsion
10/27/24 13:45
0.9% Sodium Chloride 1000 ml [Nss] 1,000 ml IV BOLUS
HYDROmorphone [Dilaudid] 0.25 mg IV NOW STA
Ondansetron Injectable [Zofran] 4 mg IV NOW STA
10/27/24 13:48
Complete Blood Count/With Diff Urgent
Comprehensive Metabolic Panel Urgent
HCG, Serum Qualitative Screen Urgent
Lactic Acid Urgent
10/27/24 14:05
Ketorolac [Toradol] 30 mg IV NOW STA
10/27/24 14:42
Morphine Sulfate 4 mg IV NOW STA
10/27/24 16:10
Electrocardiogram (*1) Urgent
Reason for Study: Abdominal Pain
CT Abd/Pel (IV only)-[facility] only Urgent
Comment:
Reason For Exam: severe lower abd pain
EKG- Treatment ONCE
10/27/24 16:12
Ondansetron Injectable [Zofran] 4 mg IV NOW STA
10/27/24 16:13
0.9% Sodium Chloride 1000 ml [Nss] 1,000 ml IV BOLUS
10/27/24 16:14
Urinalysis Reflex To Culture Urgent
Date Specimen was Collected: 10/27/24
Time Specimen was Collected: 15:56
10/27/24 18:31
Diazepam [Valium] 5 mg PO NOW STA
10/27/24 18:58
Sucralfate Suspension [Carafate Suspension] 1 gm PO NOW STA
Abnormal Lab Results
10/27/24
13:48
Absolute Monos (auto) 0.9 H 10^3/uL
(0.1-0.6)
Monocytes % 9.7 H %
(1.7-9.3)
Glucose 104 H mg/dl
(70-99)
10/27/24 13:48
10/27/24 13:48
Vital Signs
Initial and Last Documented VS:
Initial Vital Signs
Temp Pulse Resp BP Pulse Ox
37.2 C 94 16 136/94 98
10/27/24 13:31 10/27/24 13:31 10/27/24 13:31 10/27/24 13:31 10/27/24 13:31
Last Documented Vital Signs
Temp Pulse Resp BP Pulse Ox
37.2 C 77 16 131/69 100
10/27/24 13:31 10/27/24 18:00 10/27/24 19:00 10/27/24 18:00 10/27/24 17:30
<Benny Pedroza MD - Last Filed: 10/27/24 16:25>
Orders/Labs/Results
Orders:
Orders
10/27/24 13:44
Test Result ONCE
Pelvis & Transvaginal US [US Pelvis W Transvag Combined] Urgent
Comment:
Reason For Exam: severe pelvic painm h/o ovarian cyst r/o torsion
10/27/24 13:45
0.9% Sodium Chloride 1000 ml [Nss] 1,000 ml IV BOLUS
HYDROmorphone [Dilaudid] 0.25 mg IV NOW STA
Ondansetron Injectable [Zofran] 4 mg IV NOW STA
10/27/24 13:48
Complete Blood Count/With Diff Urgent
Comprehensive Metabolic Panel Urgent
HCG, Serum Qualitative Screen Urgent
Lactic Acid Urgent
10/27/24 14:05
Ketorolac [Toradol] 30 mg IV NOW STA
10/27/24 14:42
Morphine Sulfate 4 mg IV NOW STA
10/27/24 16:10
Electrocardiogram (*1) Urgent
Reason for Study: Abdominal Pain
CT Abd/Pel (IV only)-[facility] only Urgent
Comment:
Reason For Exam: severe lower abd pain
EKG- Treatment ONCE
10/27/24 16:12
Ondansetron Injectable [Zofran] 4 mg IV NOW STA
10/27/24 16:13
0.9% Sodium Chloride 1000 ml [Nss] 1,000 ml IV BOLUS
10/27/24 16:14
Urinalysis Reflex To Culture Urgent
Date Specimen was Collected: 10/27/24
Time Specimen was Collected: 15:56
10/27/24 18:31
Diazepam [Valium] 5 mg PO NOW STA
10/27/24 18:58
Sucralfate Suspension [Carafate Suspension] 1 gm PO NOW STA
Abnormal Lab Results
10/27/24
13:48
Absolute Monos (auto) 0.9 H 10^3/uL
(0.1-0.6)
Monocytes % 9.7 H %
(1.7-9.3)
Glucose 104 H mg/dl
(70-99)
10/27/24 13:48
10/27/24 13:48
Vital Signs
Initial and Last Documented VS:
Initial Vital Signs
Temp Pulse Resp BP Pulse Ox
37.2 C 94 16 136/94 98
10/27/24 13:31 10/27/24 13:31 10/27/24 13:31 10/27/24 13:31 10/27/24 13:31
Last Documented Vital Signs
Temp Pulse Resp BP Pulse Ox
37.2 C 77 16 131/69 100
10/27/24 13:31 10/27/24 18:00 10/27/24 19:00 10/27/24 18:00 10/27/24 17:30
<Christin Guerrero PA-C - Last Filed: 10/27/24 20:29>
MDM/Problems Addressed
Differential Diagnosis Includes:
endometriosis, ovarian torsion, aaa, consitpation, bolwe obstruction, ischemic bowel, cysitis, PID
MDM/Problems Addressed:
49 y/o F
ongoing pelvic pain issues
much worse x 3 days
has seen [facility] and had ovarian cyst and endometrial hyperplasia on US
but no diagnosis of endometriosis
has not had menses in 2 mo, IUD pulled last year
pt has not had urinary discomfort
intesne back/rectal/vaginal spasm and pressure
pt's abdomen is nonsurgical
lactate normal
labs unremarkable
US t o r/o torsion essentially neg
pt returned from US and had intense nausea/dizziness/hyperventilation was lightheaded and nauseated; probably related to opiates as well as maybe pain and vagal during US
her vitals never were unstable but due to this severe pain an dneg US, ct ordered; ed attending hany
d/w dr. davalos from [facility] who did assess the patientand perform pelvic exam
she suspects maybe endometriosis but at this point would not recommend inpatient admission; needs outpatient ex lap
pt offered obs admission for pain bu tshe declined
would vida to try carafate for her abd discomfort which now feels like her stomach ulcer/empty feeling
and i did offer her both pain meds (vicodin) and valium for spasm
and she will see which she can tolerate
<Christin Guerrero PA-C - Last Filed: 10/27/24 20:29>
*Critical Care Note
Total Time (30-74mins, 75-104mins- exclusive of procedures): Not Applicable
ED Attending Note
<Christin Guerrero PA-C - Last Filed: 10/27/24 20:29>
-
Portions of this chart may have been created with voice recognition software.� Occasional wrong word or��sound alike� substitutions may have occurred due to the inherent limitations of voice recognition software.
<Benny Pedroza MD - Last Filed: 10/27/24 16:25>
ED Attending Note
Patient seen and examined by attending physician: Yes
I performed the substantive portion of visit, reviewed & personally made and approve the management plan that is documented in note by myself or AKIN.: Yes
ED Attending Note:
49-year-old female complaining of ongoing pelvic pain. Pain is severe in nature especially the last 3 days. No bleeding no fever no chest pain shortness of breath or other complaints.
Patient had received narcotic pain management went to ultrasound and during ultrasound felt extra lightheaded and near syncopal. Still feels foggy.
On exam patient is nontoxic although appears uncomfortable. Warm and dry. Perfusing well. Blood pressure stable here. Abdomen is nonsurgical and soft with mild suprapubic tenderness. No rebound or guarding no mass or hernia.
Labs are stable. EKG is fine. Ultrasound apparently just shows a cyst although official report is pending.
Will receive more IV fluids. CT abdomen and pelvis
Discharge Plan
Departure
Patient Disposition: Home (Routine Discharge)
Date of Disposition: 10/27/24
Time of Disposition: 18:58
Patient with high blood pressure during this ER visit?: No
Condition: Fair
Covid-19: Not Applicable
Discharge Problem:
Pelvic pain
Instructions: Chronic Pelvic Pain (DC)
Prescriptions:
New
diazepam [Valium] 5 mg tablet
5 mg PO TID PRN (Reason: muscle spasm) Qty: 12 0RF
hydrocodone-acetaminophen 5-325 mg tablet
1 tab PO TID PRN (Reason: PAIN) Qty: 12 0RF
sucralfate [Carafate] 1 gram tablet
1 g PO ACHS PRN (Reason: NAUSEA) Qty: 30 0RF
ondansetron 4 mg tablet,disintegrating
4 mg PO Q8H PRN (Reason: nausea and vomiting) 4 Days Qty: 10 0RF
No Action
ascorbic acid (vitamin C) [Vitamin C] 500 MG tablet
500 mg PO DAILY
magnesium 250 MG tablet
250 mg PO DAILY
albuterol sulfate 1 PUFF HFA aerosol inhaler
2 puff inhalation R Q4HPRN PRN (Reason: asthma)
fexofenadine [Mariam] 180 mg Tablet
180 mg PO DAILY
pantoprazole [Protonix] 40 mg Tablet,Delayed Release (Dr/Ec)
40 mg PO DAILY PRN (Reason: stomach issues)
ferrous sulfate [iron] 325 mg (65 mg iron) Tablet
325 mg PO DAILY
docusate sodium [Colace] 100 mg Capsule
100 mg PO DAILY PRN (Reason: constipation)
vitamin B complex [B Complete] Tablet
1 tab PO DAILY
fluticasone propionate [Flonase] 50 mcg/actuation Spearfish,Suspension
1 spray INTRANASAL DAILY PRN (Reason: allergies)
cinnamon bark [Cinnamon] 500 mg Capsule
500 mg PO DAILY
cholecalciferol (vitamin D3) [Vitamin D3] 125 mcg (5,000 unit) Tablet
125 mcg PO DAILY
sucralfate [Carafate] 100 mg/mL suspension
10 ml PO ACHS Qty: 1000 0RF
Referrals:
Pamela Vuong CRNP [Family Provider] -
Stand Alone Forms: Return to Work
Activity Restrictions/Additional Instructions:
WE ARE NOT SURE THE CAUSE OF YOUR PELVIC PAIN
TRY VALIUM 5 MG EVERY 8 HOURS NEEDED FOR SPASM PAIN
YOU CAN ALSO TRY VICODIN 1 TAB EVERY 6 HOURS NEEDED
USE MIRALAX OR METAMUCIL TO MAKE SURE NOT TO GET CONSTIAPTED
RETURN FOR: SEVERE PAIN, FEVER, INABILITY TO MOVE BOWELS, LEG WEAKNESS, LEG NUMBNESS, INCONTINENCE ETC
OTHERWISE SEE YOUR [facility] FOR FURTHER WORK UP
Interventions
Interventions:
*Risk Screen - Suicide Last Done: 10/27/24 13:31
*General Assessment Last Done: 10/27/24 13:58
*Neglect/Abuse Screening Last Done: 10/27/24 13:31
*ED- Fall Risk Assessment Last Done: 10/27/24 13:58
*ED COVID-19 Vaccine History Last Done: 10/27/24 13:58
*Nursing Disposition Last Done: 10/27/24 19:50
ED-Female Genitourinary Assessment Last Done: 10/27/24 13:25
Discharge Date and Time
Discharge Date/Time: 10/27/24 19:50
Print Language: SERBIAN
[2024-10-27 16:07] VITALS: BP 137/71
[2024-10-27 16:08] VITALS: BP 143/72
[2024-10-27 16:21] LABS: Urine Albumin Negative (Neg - Trace); Urine Bilirubin Negative (Negative); Urine Character Clear (Clear); Urine Glucose Negative (Negative); Urine Ketone Negative (Negative); Urine Leukocyte Negative (Negative); Urine Nitrite Negative (Negative); Urine Occult Blood Negative (Negative); Urine Specific Gravity 1.005 (<1.030); Urine Urobilinogen Negative (Neg - 1+)
[2024-10-27 16:24] LABS: Urine Color Yellow
[2024-10-27 17:00] VITALS: BP 119/70
[2024-10-27 18:00] VITALS: BP 131/69
--- NOTE | 2024-10-27 18:34 | CON.MD ---
Consultation - Medical
-
Consult: pelvic pain
HPI: Patient is a 49yo who presents with complaints of pelvic pain for the last few months. She reports that she feels sharp pain in her pelvis and feels like something is ripping out of her cervix. She has not had a normal period since
July. She had a Paragard IUD that was taken out about a year ago. She was having abnormal bleeding with the Paragard and had a normal EMB. She was seen in the office last month for similar complaints and had a pelvic ultrasound. Pelvic
ultrasound showed a thickened endometrium and multiple small right ovarian cysts. She has plans to have a hysteroscopy with Dr. Amaya. She has a surgery consult scheduled in November and she has been in contact with the maintenance scheduler to move up
her consult. She says the pain has been constant but was worse over the weekend. She was not able to go to work on Monday and thought she was feeling better this morning but once she got up and moved she had worsening of the pain. She denies fevers,
chills, abnormal discharge, or vomiting. She had spotting last month but did not have a normal period. She has no history of endometriosis that she knows of. She is seeing a pelvic floor physical therapist for prolapse. She has been using a heating
pad with some relief in her symptoms. She says she was constipated but had a normal bowel movement recently. She has never been diagnosed with IBS but has constipation and diarrhea that correlate with her cycle. She does say she has multiple GI
problems and has had colonoscopies and endoscopies.
ROS otherwise negative unless noted in the HPI
PMHx: GERD, multiple food allergies
Meds: albuterol prn, flonase, protonix
Surghx: elective termination of
All: asparagus, egg, shellfish, mold, mushroom, sunflower seeds, nuts, debra, seasonal allergies
Famhx: non-contributory
OBHx: SVDx4, ETOPx1
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
O:
BP 131/69
General: well appearing, resting in bed
Cardio: regular
Pulm: no increased work of breathing
Abd: soft, nontender, no rebound rigidity, or guarding
SSE: normal appearing cervix, no lesions or masses, stage 2 pelvic organ prolapse, bimanual exam with no masses palpated, no cervical motion tenderness
Pelvic ultrasound:
Examinations: Transabdominal and transvaginal pelvic ultrasound with Doppler on 10/27/2024 3:03 PM
Clinical Information: Pelvic pain
Comparison: Ultrasound pelvis 10/02/2024.
FINDINGS:
The following represents a composite report of the transabdominal and transvaginal sonographic examination of the pelvis.
The uterus measures 9.0 x 4.4 x 4.8 cm. The uterus has a homogeneous echotexture without focal mass. Endometrial stripe is at upper normal limits for patient's age and measures 16 mm maximal thickness.
The right ovary measures 2.8 x 1.4 x 1.6 cm and is within normal limits.
The left ovary measures 3.9 x 2.8 x 2.7 cm and contains a simple cyst/dominant follicle measuring up to 2.5 cm, well delineated.
Given the patient's symptoms, color Doppler and duplex interrogation was performed demonstrating arterial and venous flow to both ovaries.
Urinary bladder shows no gross abnormality. There is no free fluid or suspicious adnexal mass.

IMPRESSION:

1. Simple left ovarian cyst.
2. No sonographic evidence for ovarian torsion.
3. Borderline thickened endometrium for age. Differential includes endometrial hyperplasia, polyp and carcinoma. Further evaluation with dedicated hysterosonogram can be obtained if clinically indicated.
CT abdomen or pelvis
IMPRESSION:
1. No significant abnormality identified in the abdomen or pelvis, as described above.
2. Mild diffuse colonic stool burden may reflect constipation.
A/P: Patient is a 49yo who presents with pelvic pain
- Pelvic ultrasound and CT scan reviewed. No acute abnormalities. Left sided simple cyst/dominant follicle measuring 2.5cm. There was flow to both ovaries. Pelvic ultrasound with ET 16mm. Patient already has surgery consult scheduled with
hysteroscopy with Dr. Amaya
- Reviewed there are no acute causes of her abdominal pain on CT or pelvic US. Doubt that the left sided cyst would cause this pain. There is no evidence of torsion. CT with stool burden. Constipation is in the differential for pelvic pain
- Pelvic pain could also be related to endometriosis. She could consider a diagnostic lap to diagnose if her pelvic pain continues, however she does not have an acute abdomen or surgical emergencies that would require diagnostic lap at this time
- Also reviewed pelvic organ prolapse on exam. Do not think this is the cause of her pelvic pain either. She should continue pelvic floor physical therapy
- Patient to keep her surgical consult with Dr. Amaya. She has already been in contact with the surgery scheduled in the office to move up her consult. Encouraged patient to take ibuprofen and tylenol as well as trying a heating pad.
[2024-10-27] MEDS: VALIUM 5 MG PO (18:42)
[2024-10-27] MEDS: CARAFATE SUSPENSION 1 GM PO (19:03)
== END 2024-10-27 19:50 | disposition home or self-care (01) ==
LOC: EMR 13:25
PROVIDERS: Physician Assistant; EMERGENCY PHYSICIAN Emergency Medicine; FAMILY PHYSICIAN Nurse Practitioner Adult Health; OTHER PHYSICIAN Student in an Organized Health Care Education/Training Program
DX: R10.2 Pelvic and perineal pain (principal); R93.89 Abnormal findings on diagnostic imaging of other specified body structures; N83.202 Unspecified ovarian cyst, left side; N83.201 Unspecified ovarian cyst, right side
CPT/HCPCS: 99284; 96374; 96375; 96376; 96361; 74177; 76830; 76856; 80053; 81003; 83605; 84703; 85025; 93005; Q9967

== ENCOUNTER 2024-11-08 11:04 | Outpatient (RCR) | payer BC, SELFPAY | END 2024-11-08 23:59 | disposition home or self-care (01) | LOC: RPT 11:04 | PROVIDERS: ATTENDING PHYSICIAN Nurse Practitioner Adult Health | DX: N39.0 Urinary tract infection, site not specified (principal); N39.3 Stress incontinence (female) (male); M62.89 Other specified disorders of muscle; R10.2 Pelvic and perineal pain; Z73.6 Limitation of activities due to disability | CPT/HCPCS: 97140; 97530 ==

== ENCOUNTER → 2024-11-14 18:10 | Outpatient (REF) | payer BC, SELFPAY | LOC: MRI 3T 18:10 | PROVIDERS: ATTENDING PHYSICIAN Obstetrics & Gynecology; FAMILY PHYSICIAN Nurse Practitioner Adult Health | DX: R10.2 Pelvic and perineal pain (principal) | CPT/HCPCS: 72197; A9575 ==

== ENCOUNTER → 2024-11-17 11:17 | Outpatient (REF) | payer BC, SELFPAY | LOC: MRI 3T 11:17 | PROVIDERS: ATTENDING PHYSICIAN Obstetrics & Gynecology; FAMILY PHYSICIAN Nurse Practitioner Adult Health | DX: R10.2 Pelvic and perineal pain (principal) | CPT/HCPCS: 72148 ==

== ENCOUNTER 2024-11-20 12:03 | Outpatient (RCR) | payer BC, SELFPAY | END 2024-11-20 23:59 | disposition home or self-care (01) | LOC: RPT 12:03 | PROVIDERS: ATTENDING PHYSICIAN Nurse Practitioner Adult Health | DX: N39.0 Urinary tract infection, site not specified (principal); N39.3 Stress incontinence (female) (male); M62.89 Other specified disorders of muscle; R10.2 Pelvic and perineal pain; Z73.6 Limitation of activities due to disability | CPT/HCPCS: 97110; 97530 ==

== ENCOUNTER 2024-11-27 06:21 | Day surgery (SDC) | payer BC, SELFPAY ==
[2024-11-25 11:29] LABS: % Basophils 1.1 % (0-2); % Eosinophils 4.8 % (0-6); % Immature Granulocytes 0.3 % (0-0.5); % Lymphocytes 27.2 % (20.5-51.1); % Monocytes 11.5 % (1.7-9.3); % Neutrophils 55.1 % (42.2-75.2); Absolute Basophils 0.1 10^3/uL (0-0.2); Absolute Eosinophils 0.4 10^3/uL (0-0.7); Absolute Lymphocytes 2.2 10^3/uL (1.2-3.4); Absolute Monocytes 0.9 10^3/uL (0.1-0.6); Absolute Neutrophils 4.4 10^3/uL (1.4-6.5); Hematocrit 38.5 % (37.0-47.0); Hemoglobin 12.2 g/dL (12.0-16.0); Mean Corp Hgb Conc. 31.7 g/dL (33.0-37.0); Mean Corpuscular Hgb 28.6 pg (27.0-31.0); Mean Corpuscular Volume 90.4 fL (81.0-99.0); Mean Platelet Volume 10.1 fL (7.4-10.4); Nucleated Red Blood Cells % 0 %; Platelet Count 330 10^3/uL (130-400); Red Blood Cell Count 4.26 10^6/uL (4.20-5.40); Red Cell Dist. Width 13.6 % (11.5-14.5); White Blood Cell Count 7.9 10^3/uL (4.8-10.8)
[2024-11-25 11:54] LABS: Blood Urea Nitrogen 9 mg/dl (7-17); Calcium 9.7 mg/dl (8.4-10.2); Carbon Dioxide 27 mmol/L (22-30); Chloride 106 mmol/L (98-107); Glucose 85 mg/dl (70-99); Potassium 4.5 mmol/L (3.5-5.1); Sodium 141 mmol/L (135-145); eGFR > 60.00
[2024-11-25 12:16] LABS: Beta HCG Quantitative < 2.39 mIU/ml
[2024-11-27] VITALS (9 sets, daily range): BP systolic 93–125; BP diastolic 56–78; BMI 28.4
[2024-11-27] MEDS: TYLENOL 1000 MG PO (11:16)
[2024-11-27] MEDS: NORMOSOL-R/PLASMALYTE-A 1000 IV (11:17)
--- NOTE | 2024-11-27 15:48 | W.IMMPOSTOP ---
Surgical Immed Post Op Note
-
Primary Surgeon: Susu Amaya DO
Assisting Surgeon: none
Pre-op Diagnosis: menorrhagia, abnormal uterine bleeding; thickened endometrial lining on imaging (pelvic TVUS and MRI),adenomyosis
Post-op Diagnosis: same
Procedure Performed: hysteroscopy D&C
Anesthesia Type: general LMA Dr. To
Specimen / Cultures: 1. endocervical curettings 2. endometrial curettings
Estimated Blood Loss: 5mL
Complications: none
Operative Findings: Uterus sounded to 8.5 cm, bilateral tubal ostia seen. Moderate amount endometrial lining. No evidence of mass/polyp/fibroid.
COunts correct times 2.
Stable to recovery.
Dictated
== END 2024-11-27 17:14 | disposition home or self-care (01) ==
LOC: SDS 06:21
PROVIDERS: ATTENDING PHYSICIAN Obstetrics & Gynecology; FAMILY PHYSICIAN Nurse Practitioner Adult Health
DX: R10.2 Pelvic and perineal pain (principal); N80.03 Adenomyosis of the uterus; N92.0 Excessive and frequent menstruation with regular cycle
CPT/HCPCS: 58558; 88305; 36415; 80048; 84702; 85025; 86850; 86900; 86901

== ENCOUNTER → 2024-12-06 11:41 | Outpatient (REF) | payer BC, SELFPAY ==
[2024-12-07 17:29] LABS: H. pylori Breath Test Positive (Negative)
== END ==
LOC: OLAB 11:41
PROVIDERS: ATTENDING PHYSICIAN Internal Medicine Gastroenterology
DX: R11.0 Nausea (principal); A04.8 Other specified bacterial intestinal infections
CPT/HCPCS: 83013

== ENCOUNTER → 2025-03-19 09:28 | Outpatient (REF) | payer BC, SELFPAY | LOC: HWWDC 09:28 | PROVIDERS: ATTENDING PHYSICIAN Nurse Practitioner Adult Health | DX: Z12.31 Encounter for screening mammogram for malignant neoplasm of breast (principal) | CPT/HCPCS: 77063; 77067 ==

== ENCOUNTER 2025-04-25 11:39 | Emergency (ER) | payer BC, SELFPAY ==
[2025-04-25 11:43] VITALS: BP 125/89
[2025-04-25] MEDS: TORADOL 30 MG IV (12:03)
[2025-04-25] MEDS: ZOFRAN 4 MG IV (12:05)
[2025-04-25] MEDS: NSS 1000 IV (12:05)
[2025-04-25 12:06] LABS: Hematocrit 40.3 % (37.0-47.0); Hemoglobin 13.1 g/dL (12.0-16.0); Mean Corp Hgb Conc. 32.5 g/dL (33.0-37.0); Mean Corpuscular Volume 85.7 fL (81.0-99.0); Nucleated Red Blood Cells % 0 %; Platelet Count 376 10^3/uL (130-400); Red Cell Dist. Width 14.6 % (11.5-14.5)
--- NOTE | 2025-04-25 12:09 | ED.GENMED ---
History of Present Illness
<Luis Sanz MD - Last Filed: 04/25/25 16:03>
General
Chief Complaint: Abdominal Pain
Time Seen by Provider: 04/25/25 11:54
History of Present Illness
History of Present Illness:
Patient is a 50-year-old woman with history of reflux, peptic ulcer disease presenting to the emergency department with abdominal pain. Patient states that 2 days ago she went out to eat had a cheeseburger and 1 drink and then developed right upper
quadrant abdominal pain. She states that she developed epigastric pain as well and now it is radiating to both the right upper and left upper quadrant. It does radiate to her back. She does state that she was supposed to get her gallbladder
removed though has not. She did have diarrhea a few days ago that has since resolved. Some nausea but no vomiting. No fevers. No urinary symptoms.
Past History
<Luis Sanz MD - Last Filed: 04/25/25 16:03>
Past History
ED Past Medical History: GERD (Schazki ring needed dilatation several times, esophageal spasms) and Other (numerous food allergies)
ED Past Surgical History: None
Social History
Tobacco: Non-smoker
Alcohol: None
Drug: None
Personal:
Living: with family
Phy Exam
<Luis Sanz MD - Last Filed: 04/25/25 16:03>
Physical Exam
Physical Exam:
GENERAL: Extremely uncomfortable appearing
HEENT: normocephalic, extraocular movements intact, moist oral mucosa
NECK: normal inspection
RESPIRATORY: no respiratory distress, clear to auscultation bilaterally
CARDIOVASCULAR: regular rate and rhythm
ABDOMEN/: soft, non-distended, epigastric and bilateral upper quadrant tenderness to palpation, no rebound or guarding
EXTREMITIES: non-tender, no edema/swelling
NEUROLOGIC: awake and alert, moves all extremities
SKIN: warm
Course
<Luis Sanz MD - Last Filed: 04/25/25 16:03>
Orders/Labs/Results
Orders:
Orders
04/25/25 11:46
Electrocardiogram (*1) Urgent
Reason for Study: Abdominal Pain
EKG- Treatment ONCE
04/25/25 11:51
IV Insert/Care/Rem.- Treatment PRN
04/25/25 11:59
Complete Blood Count/With Diff Urgent
Comprehensive Metabolic Panel Urgent
HCG, Serum Qualitative Screen Urgent
Comment: ADD ON
Lipase Urgent
04/25/25 12:00
Add On- LAB Urgent
Tests Added?: serum qual
0.9% Sodium Chloride 1000 ml [Nss] 1,000 ml IV BOLUS
Ketorolac [Toradol] 30 mg IV NOW STA
Ondansetron Injectable [Zofran] 4 mg IV NOW STA
04/25/25 12:08
CT Abd/pelvis W Iv Cont Urgent
Comment:
Reason For Exam: epigastric pain, RUQ and LUQ
04/25/25 15:55
US Abdomen Limited Urgent
Comment: F/U CT RUQ LIMITED ONLY
Reason For Exam: epigastric/bilateral upper quadrant pain
04/25/25 16:50
Acetaminophen 1000MG/100Ml [Ofirmev] 1,000 mg in 100 ml IV ONCE
Acetaminophen IV Indication:: ED Narcotic Naive Pt-ONCE
04/25/25 18:33
Ketorolac [Toradol] 15 mg IV NOW STA
04/25/25 18:56
Mag Hydrox/Al Hydrox/Simeth [Maalox] 30 ml Phenobarb/Hyoscy/Atropine/Scop [] 10 ml Viscous Lidocaine 2% [Xylocaine Viscous Cup] 10 ml PO NOW
Pantoprazole [Protonix IV] 40 mg IV NOW STA
04/25/25 19:00
Mag Hydrox/Al Hydrox/Simeth [Maalox] 30 ml .ROUTE .STK-MED ONE
Phenobarb/Hyoscy/Atropine/Scop [] 10 ml .ROUTE .STK-MED ONE
Viscous Lidocaine 2% [Xylocaine Viscous Cup] 15 ml .ROUTE .STK-MED ONE
Abnormal Lab Results
04/25/25
11:59
WBC 13.5 H 10^3/uL
(4.8-10.8)
MCHC 32.5 L g/dL
(33.0-37.0)
RDW 14.6 H %
(11.5-14.5)
Absolute Neuts (auto) 8.1 H 10^3/uL
(1.4-6.5)
Absolute Monos (auto) 1.3 H 10^3/uL
(0.1-0.6)
Monocytes % 9.8 H %
(1.7-9.3)
Total Protein 8.4 H g/dl
(6.3-8.2)
04/25/25 11:59
04/25/25 11:59
Vital Signs
Initial and Last Documented VS:
Initial Vital Signs
Temp Pulse Resp BP Pulse Ox
36.8 C 82 18 125/89 99
04/25/25 11:43 04/25/25 11:43 04/25/25 11:43 04/25/25 11:43 04/25/25 11:43
Last Documented Vital Signs
Temp Pulse Resp BP Pulse Ox
36.8 C 68 15 116/67 100
04/25/25 11:43 04/25/25 14:54 04/25/25 14:54 04/25/25 14:54 04/25/25 14:54
<Geovanni Baldwin MD - Last Filed: 04/26/25 00:07>
Orders/Labs/Results
Orders:
Orders
04/25/25 11:46
Electrocardiogram (*1) Urgent
Reason for Study: Abdominal Pain
EKG- Treatment ONCE
04/25/25 11:51
IV Insert/Care/Rem.- Treatment PRN
04/25/25 11:59
Complete Blood Count/With Diff Urgent
Comprehensive Metabolic Panel Urgent
HCG, Serum Qualitative Screen Urgent
Comment: ADD ON
Lipase Urgent
04/25/25 12:00
Add On- LAB Urgent
Tests Added?: serum qual
0.9% Sodium Chloride 1000 ml [Nss] 1,000 ml IV BOLUS
Ketorolac [Toradol] 30 mg IV NOW STA
Ondansetron Injectable [Zofran] 4 mg IV NOW STA
04/25/25 12:08
CT Abd/pelvis W Iv Cont Urgent
Comment:
Reason For Exam: epigastric pain, RUQ and LUQ
04/25/25 15:55
US Abdomen Limited Urgent
Comment: F/U CT RUQ LIMITED ONLY
Reason For Exam: epigastric/bilateral upper quadrant pain
04/25/25 16:50
Acetaminophen 1000MG/100Ml [Ofirmev] 1,000 mg in 100 ml IV ONCE
Acetaminophen IV Indication:: ED Narcotic Naive Pt-ONCE
04/25/25 18:33
Ketorolac [Toradol] 15 mg IV NOW STA
04/25/25 18:56
Mag Hydrox/Al Hydrox/Simeth [Maalox] 30 ml Phenobarb/Hyoscy/Atropine/Scop [] 10 ml Viscous Lidocaine 2% [Xylocaine Viscous Cup] 10 ml PO NOW
Pantoprazole [Protonix IV] 40 mg IV NOW STA
04/25/25 19:00
Mag Hydrox/Al Hydrox/Simeth [Maalox] 30 ml .ROUTE .STK-MED ONE
Phenobarb/Hyoscy/Atropine/Scop [] 10 ml .ROUTE .STK-MED ONE
Viscous Lidocaine 2% [Xylocaine Viscous Cup] 15 ml .ROUTE .STK-MED ONE
Abnormal Lab Results
04/25/25
11:59
WBC 13.5 H 10^3/uL
(4.8-10.8)
MCHC 32.5 L g/dL
(33.0-37.0)
RDW 14.6 H %
(11.5-14.5)
Absolute Neuts (auto) 8.1 H 10^3/uL
(1.4-6.5)
Absolute Monos (auto) 1.3 H 10^3/uL
(0.1-0.6)
Monocytes % 9.8 H %
(1.7-9.3)
Total Protein 8.4 H g/dl
(6.3-8.2)
04/25/25 11:59
04/25/25 11:59
Vital Signs
Initial and Last Documented VS:
Initial Vital Signs
Temp Pulse Resp BP Pulse Ox
36.8 C 82 18 125/89 99
04/25/25 11:43 04/25/25 11:43 04/25/25 11:43 04/25/25 11:43 04/25/25 11:43
Last Documented Vital Signs
Temp Pulse Resp BP Pulse Ox
36.8 C 68 15 116/67 100
04/25/25 11:43 04/25/25 14:54 04/25/25 14:54 04/25/25 14:54 04/25/25 14:54
<Luis Sanz MD - Last Filed: 04/25/25 16:03>
MDM/Problems Addressed
Differential Diagnosis Includes:
Patient is a 50-year-old woman presenting to the emergency department with abdominal pain for the past 2 days. On arrival vitals are unremarkable and exam shows a woman who is extremely uncomfortable appearing with epigastric and bilateral upper
quadrant tenderness. Concern for cholecystitis versus pancreatitis versus peptic ulcer disease. No distention no rebound or guarding so less likely to be an acute abdomen. Will check blood work EKG and CT scan. Will pain control.
<Luis Sanz MD - Last Filed: 04/25/25 16:03>
*Pulse Oximetry
SaO2: 99
Oxygen Mode of Delivery: Room air
<Geovanni Baldwin MD - Last Filed: 04/26/25 00:07>
*Radiology
Radiology exam reviewed: radiology read reviewed
*Pulse Oximetry
Patient hypoxic: no (99%)
*Critical Care Note
Total Time (30-74mins, 75-104mins- exclusive of procedures): Not Applicable
<Luis Sanz MD - Last Filed: 04/25/25 16:03>
Update Note
Update Note:
On reevaluation pain is improved. Labs notable for slight leukocytosis. CT scan negative for any acute abnormality. I did reach out to surgery as patient is describing biliary colic. Recommended ultrasound to evaluate for any gallstones. If
negative for any gallstones recommend outpatient follow-up. Patient signed out to oncoming attending pending ultrasound.
<Geovanni Baldwin MD - Last Filed: 04/26/25 00:07>
Update Note
Update Note:
On reevaluation pain is improved. Labs notable for slight leukocytosis. CT scan negative for any acute abnormality. I did reach out to surgery as patient is describing biliary colic. Recommended ultrasound to evaluate for any gallstones. If
negative for any gallstones recommend outpatient follow-up. Patient signed out to oncoming attending pending ultrasound.
UPDATE (Geovanni Baldwin MD)
I have seen and evaluated the patient after signout and reviewed all labs and imaging.
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 pylori and she sees GI regularly. She presents to the
emergency room today for evaluation of abdominal pain. She reports that symptoms started 2 nights ago when she went out to dinner with her daughter and had a cocktail that did not taste quite right. She thought that she had food poisoning because
about 2 hours later she started with diarrhea and abdominal pain and abdominal pain has been consistent since then. She reports pain in the epigastrium that radiates towards the back and slightly towards the right side as well. She does have a
history of biliary colic related to dysfunction that was diagnosed via HIDA scan in 2018. She was recommended for cholecystectomy ultimately but has been holding off in favor of dietary adjustments which is typically sufficient for symptoms to
resolve. She has been essentially fasting for the past 2 days but symptoms still quite severe which ultimately prompted her to come to the ER to be evaluated. She does make note that she has a history of PUD and recurrent esophagitis, H. pylori.
She has been off of her PPI for 2 weeks in anticipation of H. pylori testing after most recent round of treatment.
Physical exam: Awake and alert not in distress. Vital signs are all within normal. Abdomen is soft and tender to palpation in the epigastrium with no peritoneal signs or masses. She has no right upper quadrant tenderness for me.
Medical Decision Makin-year-old female presents to the ER for abdominal pain as described above. She had labs sent off including a CBC which showed a marginal leukocytosis. Her CMP shows no clinically significant abnormalities. Her lipase is
normal. She was sent for a CT abdomen pelvis which showed incidental ovarian cyst but no acute abnormalities. Given her history of biliary colic there was concern that this could be another episode and case was discussed with general surgery who
recommended an ultrasound to evaluate for stones. Upper abdominal ultrasound was negative for any gallstones or other acute abnormalities. This could be another episode of biliary colic or could be gastritis/PUD causing her symptoms. She does
make note that the pain is in a somewhat atypical location for her biliary colic�typically it is right sided pain and today's pain is really more in the epigastrium. I had a long discussion with the patient because she is still having pain�we spoke
about potentially admission to the hospital but patient does not want to stay in the hospital. She prefers to restart PPI and will take Carafate at home and bland diet for the next few days. Follow-up with your GI as an outpatient. She will
return if symptoms are worsening. All questions answered.
ED Attending Note
<Luis Sanz MD - Last Filed: 04/25/25 16:03>
-
Portions of this chart may have been created with voice recognition software.� Occasional wrong word or��sound alike� substitutions may have occurred due to the inherent limitations of voice recognition software.
Discharge Plan
Departure
Patient Disposition: Home (Routine Discharge)
Date of Disposition: 04/25/25
Time of Disposition: 19:09
Patient with high blood pressure during this ER visit?: No
Discharge Problem:
Abdominal pain
Prescriptions:
No Action
ascorbic acid (vitamin C) [Vitamin C] 500 MG tablet
500 mg PO DAILY
magnesium 250 MG tablet
250 mg PO HS
albuterol sulfate 1 PUFF HFA aerosol inhaler
2 puff inhalation R Q4HPRN PRN (Reason: asthma)
fexofenadine [Mariam] 180 mg Tablet
180 mg PO DAILY
pantoprazole [Protonix] 40 mg Tablet,Delayed Release (Dr/Ec)
40 mg PO DAILY PRN (Reason: stomach issues)
vitamin B complex [B Complete] Tablet
1 tab PO DAILY
fluticasone propionate [Flonase] 50 mcg/actuation [place],Suspension
1 spray INTRANASAL DAILY PRN (Reason: allergies)
cinnamon bark [Cinnamon] 500 mg Capsule
500 mg PO DAILY
cholecalciferol (vitamin D3) [Vitamin D3] 125 mcg (5,000 unit) Tablet
125 mcg PO DAILY
sucralfate [Carafate] 1 gram tablet
1 g PO ACHS PRN (Reason: NAUSEA) Qty: 30 0RF
ondansetron 4 mg tablet,disintegrating
4 mg PO Q8H PRN (Reason: nausea and vomiting) 4 Days Qty: 10 0RF
hydrocodone-acetaminophen 5-325 mg tablet
1 tab PO TID PRN (Reason: Pain) Qty: 12 0RF
diazepam [Valium] 5 mg tablet
5 mg PO TID PRN (Reason: muscle spasm) Qty: 12 0RF
Rx Instructions:
Took 2.5
acetaminophen [Tylenol Ex Str Arthritis Pain] 500 mg Tablet
1,000 mg PO QID PRN (Reason: pain)
ibuprofen [Advil] 200 mg Tablet
400 mg PO Q8H PRN (Reason: pain)
tranexamic acid 650 mg tablet
1,300 mg PO TID 5 Days Qty: 30 0RF
Referrals:
Pamela Vuong CRNP [Family Provider, Internal Medicine]
Lloyd Olivares MD [Active, Surgical]
Activity Restrictions/Additional Instructions:
You have been evaluated in the Emergency Department today for abdominal pain. Your evaluation did not show evidence of medical conditions requiring emergent intervention at this time.
Please schedule an appointment with Dr Olivares.
Return to the Emergency Department if you experience worsening or uncontrolled pain, fevers 100.4�F or greater, recurrent vomiting, inability to tolerate food or fluids by mouth, bloody stools or vomit, black or tarry stools, or any other concerning
symptoms.
Thank you for choosing us for your care.
Interventions
Interventions:
*Risk Screen - Suicide Last Done: 04/25/25 11:43
*General Assessment Last Done: 04/25/25 11:43
*Neglect/Abuse Screening Last Done: 04/25/25 11:43
*ED- Fall Risk Assessment Last Done: 04/25/25 19:53
*ED COVID-19 Vaccine History Last Done: 04/25/25 19:53
*ED Influenza Vaccine History Last Done: 04/25/25 19:53
*Nursing Disposition Last Done: 04/25/25 19:53
JW-Dajuwv-Xjhckcyrqh Assessment Last Done: 04/25/25 12:20
Discharge Date and Time
Discharge Date/Time: 04/25/25 19:56
Print Language: BENGALI
[2025-04-25 12:35] LABS: HCG, Serum Qualitative Screen Negative
[2025-04-25 12:38] LABS: ALT (SGPT) 21 U/L (0-35); AST (SGOT) 27 U/L (14-36); Albumin 4.9 g/dl (3.5-5.0); Alkaline Phosphatase 88 U/L (38-126); Blood Urea Nitrogen 11 mg/dl (7-17); Calcium 10.0 mg/dl (8.4-10.2); Carbon Dioxide 27 mmol/L (22-30); Chloride 101 mmol/L (98-107); Glucose 87 mg/dl (70-99); Lipase 100 U/L (23-300); Potassium 4.0 mmol/L (3.5-5.1); Sodium 136 mmol/L (135-145); Total Protein 8.4 g/dl (6.3-8.2); eGFR > 60.00
[2025-04-25 14:54] VITALS: BP 116/67
[2025-04-25] MEDS: OFIRMEV 100 IV (16:54)
[2025-04-25] MEDS: PROTONIX IV 40 MG IV (19:02)
[2025-04-25] MEDS: MAALOX 50 PO (19:02)
== END 2025-04-25 19:56 | disposition home or self-care (01) ==
LOC: EMR 11:39
PROVIDERS: EMERGENCY PHYSICIAN Student in an Organized Health Care Education/Training Program; FAMILY PHYSICIAN Nurse Practitioner Adult Health
DX: R10.13 Epigastric pain (principal); D72.829 Elevated white blood cell count, unspecified; N83.202 Unspecified ovarian cyst, left side; K21.9 Gastro-esophageal reflux disease without esophagitis; K27.9 Peptic ulcer, site unspecified, unspecified as acute or chronic, without hemorrhage or perforation
CPT/HCPCS: 99284; 96374; 96375 ×3; 96361; 74177; 76705; 80053; 83690; 84703; 85025; 93005; Q9967

== ENCOUNTER 2025-04-29 15:34 | Inpatient (IN) | payer BC, SELFPAY ==
[2025-04-29] VITALS (17 sets, daily range): BP systolic 14–139; BP diastolic 55–93; BMI 27.6
--- NOTE | 2025-04-29 11:20 | ED.GENMED ---
History of Present Illness
General
Chief Complaint: Abdominal Pain
Source: patient and records
Exam Limitations: none
Time Seen by Provider: 04/29/25 11:12
Nursing documentation reviewed up to this point in time: agreed with
History of Present Illness
History of Present Illness:
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 pylori (sees Dr. Andrews for gastroenterology) who presents to the emergency room for
evaluation of abdominal pain. This is patient's second visit for abdominal pain in the past week�was seen 04/25/2025 in the ER with the symptoms and was evaluated with labs, CT, ultrasound; imaging was essentially nondiagnostic she was discharged on
Protonix 40 mg twice daily and Carafate with instructions to follow-up with GI. Since then her symptoms have not improved at all. She states that she has not been able to tolerate any food or beverage without severe epigastric pain 'like a knot.'
She has had nausea and intense belching but thankfully no vomiting. Scant bowel movements as she is taking very little by mouth. She has had a 7 pound weight loss in the past week. She was seen by her primary provider today who referred her back
to the emergency room for her symptoms. She has not had fevers or chills or any other acute symptoms. She does note that she tried to contact gastroenterology who felt that it was likely rebound acidity after patient was transiently off PPI for H.
pylori testing.
Past History
Past History
ED Past Medical History: GERD (Schazki ring needed dilatation several times, esophageal spasms) and Other (numerous food allergies)
ED Past Surgical History: None
Social History
Tobacco: Non-smoker
Alcohol: None
Drug: None
Personal:
Living: with family
Review of Systems
Review of Systems
All Other Systems: ROS reviewed and negative except as documented in HPI and ROS
Constitutional: Denies fever
Respiratory: Denies trouble breathing
Cardiac: Denies chest pain
ABD/GI: Reports abdominal pain and nausea; Denies vomiting or diarrhea
: Denies flank pain
Musculoskeletal: Reports back pain; Denies neck pain
Neurological: Denies headache
Phy Exam
Physical Exam
Physical Exam:
General: Awake, alert, oriented x3; no acute distress
Head: Normocephalic, atraumatic
Eyes: Conjunctiva normal, sclera anicteric
Throat: Airway intact, handling secretions
Neck: Trachea midline, supple without meningismus
Lungs: Clear to auscultation bilaterally, no wheezing, rales, rhonchi
Heart: Regular rate and rhythm, no murmurs, gallops, or rubs
Abd: Soft, non distended, tender to palpation in the epigastrium
Neuro: Grossly intact
Skin: Warm and dry
Extremities: Warm well-perfused
Scores
Heart Failure Risk
Heart Failure Risk Score: Not Applicable
Heart Score for Chest Pain Patients
STEMI patient?: Not applicable
Withdrawal Assessment of Alcohol
Withdrawal Assessment Completed?: Not applicable
Course
Orders/Labs/Results
Orders:
Orders
04/29/25 11:17
Electrocardiogram (*1) Urgent
Reason for Study: Abdominal Pain
EKG- Treatment ONCE
Mag Hydrox/Al Hydrox/Simeth [Maalox] 30 ml Phenobarb/Hyoscy/Atropine/Scop [] 10 ml Viscous Lidocaine 2% [Xylocaine Viscous Cup] 10 ml PO NOW
04/29/25 11:18
0.9% Sodium Chloride 1000 ml [Nss] 1,000 ml IV BOLUS
04/29/25 11:19
Consult Gastroenterology [GASTROINTESTINAL CONSULT] Urgent
Consulting Provider: Britney Grewal
Was physician already notified: Yes
04/29/25 11:20
Mag Hydrox/Al Hydrox/Simeth [Maalox] 30 ml .ROUTE .STK-MED ONE
Phenobarb/Hyoscy/Atropine/Scop [] 10 ml .ROUTE .STK-MED ONE
Viscous Lidocaine 2% [Xylocaine Viscous Cup] 15 ml .ROUTE .STK-MED ONE
04/29/25 11:22
Complete Blood Count/With Diff Urgent
Comprehensive Metabolic Panel Urgent
Lipase Urgent
04/29/25 11:58
Dicyclomine [Bentyl] 10 mg PO NOW STA
04/29/25 13:23
Ondansetron Injectable [Zofran] 4 mg IV NOW STA
Abnormal Lab Results
04/29/25
11:22
MCHC 32.5 L g/dL
(33.0-37.0)
Absolute Monos (auto) 0.8 H 10^3/uL
(0.1-0.6)
Sodium 134 L mmol/L
(135-145)
Total Protein 8.5 H g/dl
(6.3-8.2)
04/29/25 11:22
04/29/25 11:22
Vital Signs
Initial and Last Documented VS:
Initial Vital Signs
Temp Pulse Resp BP Pulse Ox
36.9 C 79 20 116/93 100
04/29/25 11:15 04/29/25 11:15 04/29/25 11:15 04/29/25 11:15 04/29/25 11:15
Last Documented Vital Signs
Temp Pulse Resp BP Pulse Ox
36.9 C 85 15 116/93 100
04/29/25 11:15 04/29/25 11:30 04/29/25 11:30 04/29/25 11:18 04/29/25 11:30
MDM/Problems Addressed
Differential Diagnosis Includes:
GERD/esophagitis/gastritis, biliary colic, gastroparesis, bowel obstruction less likely
MDM/Problems Addressed:
50-year-old female returns to the ER with continued epigastric abdominal pain radiating to the right side and through to the back not improving despite high-dose PPI and Carafate. Has not been able to tolerate p.o. and has had 7 pound weight loss
in the past week. Vitals and exam are as above. Plan to repeat labs. Offered pain medication but patient declined opiates and would hold off on Toradol with symptoms potentially related to gastritis. She is agreeable to green grabber which we
can trial. Provide IV fluids. Discussed case with GI for consultation�hold off on additional imaging pending GI recommendations.
Labs reviewed and unremarkable. Patient still quite symptomatic with plan to admit for continued management of refractory symptoms. Discussed with hospitalist for admission.
Chronic conditions affecting care:
GERD
*Radiology
Radiology exam reviewed: radiology read reviewed (Reviewed radiology reports from prior visit)
*Pulse Oximetry
Patient hypoxic: no (100%)
*EKG
Interpreted by ED Provider?: Yes
Heart Rate: 75
Rate: normal
Rhythm: sinus
[place]: normal axis
Interval: normal interval
QRS Pattern: normal QRS
Ischemia: no ischemia
*Critical Care Note
Total Time (30-74mins, 75-104mins- exclusive of procedures): Not Applicable
Data Reviewed
Review of Other/Old Records Reveals: Labs and Records
Source: patient and records
Patient Management
Discussion with other providers: Hospitalist (Discussed with hospitalist) and Bacon Skinner (Discussed with gastroenterology)
Escalation/DeEscalation of care consider admission/obs:
Admission indicated
ED Attending Note
-
Portions of this chart may have been created with voice recognition software.� Occasional wrong word or��sound alike� substitutions may have occurred due to the inherent limitations of voice recognition software.
Discharge Plan
Departure
Patient Disposition: Admit
Date of Disposition: 04/29/25
Time of Disposition: 13:25
Admit to doctor: Justin
Presentation/result/management discussed w/ accepting MD/DO: Hospitalist
Discharge Problem:
Abdominal pain
Prescriptions:
No Action
ascorbic acid (vitamin C) [Vitamin C] 500 MG tablet
500 mg PO DAILY
magnesium 250 MG tablet
250 mg PO HS
albuterol sulfate 1 PUFF HFA aerosol inhaler
2 puff inhalation R Q4HPRN PRN (Reason: asthma)
fexofenadine [Mariam] 180 mg Tablet
180 mg PO DAILY
pantoprazole [Protonix] 40 mg Tablet,Delayed Release (Dr/Ec)
40 mg PO DAILY PRN (Reason: stomach issues)
vitamin B complex [B Complete] Tablet
1 tab PO DAILY
fluticasone propionate [Flonase] 50 mcg/actuation [place],Suspension
1 spray INTRANASAL DAILY PRN (Reason: allergies)
cinnamon bark [Cinnamon] 500 mg Capsule
500 mg PO DAILY
cholecalciferol (vitamin D3) [Vitamin D3] 125 mcg (5,000 unit) Tablet
125 mcg PO DAILY
sucralfate [Carafate] 1 gram tablet
1 g PO ACHS PRN (Reason: NAUSEA) Qty: 30 0RF
ondansetron 4 mg tablet,disintegrating
4 mg PO Q8H PRN (Reason: nausea and vomiting) 4 Days Qty: 10 0RF
hydrocodone-acetaminophen 5-325 mg tablet
1 tab PO TID PRN (Reason: Pain) Qty: 12 0RF
diazepam [Valium] 5 mg tablet
5 mg PO TID PRN (Reason: muscle spasm) Qty: 12 0RF
Rx Instructions:
Took 2.5
acetaminophen [Tylenol Ex Str Arthritis Pain] 500 mg Tablet
1,000 mg PO QID PRN (Reason: pain)
ibuprofen [Advil] 200 mg Tablet
400 mg PO Q8H PRN (Reason: pain)
tranexamic acid 650 mg tablet
1,300 mg PO TID 5 Days Qty: 30 0RF
Referrals:
D'Jose Manuel,Malini, [facility] [Family Provider, Internal Medicine]
Interventions
Interventions:
*Risk Screen - Suicide Last Done: 04/29/25 11:12
*General Assessment Last Done: 04/29/25 11:12
*Neglect/Abuse Screening Last Done: 04/29/25 11:12
*ED- Fall Risk Assessment Last Done: 04/29/25 11:12
*ED COVID-19 Vaccine History Last Done: 04/29/25 11:12
*ED Influenza Vaccine History Last Done: 04/29/25 11:12
OL-Khxnav-Csxgxvsuoa Assessment Last Done: 04/29/25 11:15
Discharge Date and Time
Print Language: [place]
[2025-04-29] MEDS: MAALOX 50 PO (11:22)
[2025-04-29] MEDS: NSS 1000 IV (11:25)
[2025-04-29 11:42] LABS: Hematocrit 40.9 % (37.0-47.0); Hemoglobin 13.3 g/dL (12.0-16.0); Mean Corp Hgb Conc. 32.5 g/dL (33.0-37.0); Mean Corpuscular Volume 88.0 fL (81.0-99.0); Nucleated Red Blood Cells % 0 %; Platelet Count 389 10^3/uL (130-400); Red Cell Dist. Width 14.1 % (11.5-14.5)
[2025-04-29 11:56] LABS: ALT (SGPT) 18 U/L (0-35); AST (SGOT) 26 U/L (14-36); Albumin 4.9 g/dl (3.5-5.0); Alkaline Phosphatase 95 U/L (38-126); Blood Urea Nitrogen 12 mg/dl (7-17); Calcium 9.9 mg/dl (8.4-10.2); Carbon Dioxide 23 mmol/L (22-30); Chloride 101 mmol/L (98-107); Estimated Creatinine Clearance 93 ml/min; Glucose 80 mg/dl (70-99); Lipase 87 U/L (23-300); Potassium 4.3 mmol/L (3.5-5.1); Sodium 134 mmol/L (135-145); Total Protein 8.5 g/dl (6.3-8.2); eGFR > 60.00
--- NOTE | 2025-04-29 11:59 | CON.GI ---
Addendum entered and electronically signed by Britney Martin Do, MD 04/29/25 14:51:
I saw and examined the patient.
The PLASTERER FOREMAN's note was reviewed and I agree with the note.
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 She recently completed quad therapy for Hpylori gastritis and also was off PPI for 2 wks
span. She uses nsaids infrequently. She was here in ER over-weekend with abd US and CTAP that was not remarkable. VSS exam mild epigastric TTP Labs reviewed
Impression
- Epigastric abd pain
- GERD
- Asthma
- Food allergies/intolerances
- Hypersensitive oral syndrmoe
- IgE mediated allergies
Recommendations
- Recommend urgent EGD today
- NPO for now
- Abd US and CTAP reviewed with patient
- PPI IV BID
Will follow with you
Original Note:
Consultation
-
Date/Time Consultation Requested: 04/29/25 1145
Date/Time Consultation Performed: 04/29/25 1200
Requesting Provider: Geovanni Baldwin MD
Performing Provider: GLORIA Perry, Britney Grewal MD
Reason for Consultation: abdominal pain
Medical History
Chief Complaint / HPI
Chief Complaint: abdominal pain/ inability to eat
History of Present Illness:
Pt is a 50-year-old female with past medical history of significant food allergies, IgE mediated allergies, oral hypersensitivity syndrome, asthma, anemia prior D+C, GERD, dysphagia, Schatzki's ring history of dilatation, history of H. pylori
status posttreatment however did not eradicate. Patient had allergic reaction to Pylera. Was then treated in the beginning of December with a combination of bismuth, tetracycline, metronidazole and pantoprazole twice daily. She was seen in office follow
up with Nayana Rudolph in March and recommended cont PPI BID, Pepcid and repeat H pylori testing with 2 week hold. She was holding PPI and went out to dinner last week with family had a burger and one ETOH drink with onset of epigastric
pain with fullness, belching. She was in ER 04/[address] and US with labs noted WBC 13,500, hbg 13,1, with normal LFT's and lipase. She now returns with continued epigastric abdominal pain and inability to eat. She also admits to
taking Advil til 1 month ago but denies GPL-1 or anticoagulation use. Also admits to increase Mariam use with recent worsening allergy symptoms.
At is time she admits to history of dysphagia with multiple dilations in past. She also admits to hx esophagitis and chronic GERD. She current complaint of abdominal pain and feeling like a ball in per stomach with fullness and decreased
appetite. Pain worse with drinking even a sip of water and radiates to back. She admits to intermittent constipation and diarrhea at onset of symptoms but denies blood or black in stools. hx EGD 2023 with Mild Schatzki ring. Dilated Esophageal
mucosal changes suggestive of eosinophilic esophagitis. Erythematous mucosa in the antrum Normal examined duodenum. Biopsies were taken with a cold forceps for evaluation of eosinophilic esophagitis bx + h pylori increased eosinophils, mild to
moderate chronic active gastritis, prominent lymphoid aggregate more c/w reflux then EOE for rx then breath test after treatment 11/2024 breath test + with retreatment 09/2023 colon - [facility] - Internal hemorrhoids.- The examination was otherwise
normal.
Past Medical History
Past Medical History: Asthma, GERD, Psychiatric (depression/anxiety ) and Other (duodenal ulcer, esophagitis, Schazki's ring, prior h pylori, rosacea, eczema, chicken pox, anemia, PNA, DDD, )
Social History
Tobacco: Non-Smoker
Alcohol: Occasional (occasional social use )
Drug: None
Personal:
Living: With Family
Employment: Employed
Family History
Family History: Other (father with marcelina/IBS, no family hx crohns or UC )
Allergies / Home Medications
Allergy/AdvReac Type Severity Reaction Status Date / Time
asparagus Allergy Itching Verified 04/29/25 11:15
egg Allergy Tongue Verified 04/29/25 11:15
Swelling
Fish Containing Products Allergy Anaphylaxis Verified 04/29/25 11:15
mold Allergy Shortness Verified 04/29/25 11:15
of Breath
mushroom Allergy Itching Verified 04/29/25 11:15
sunflower seed Allergy Anaphylaxis Verified 04/29/25 11:15
tree nut Allergy Anaphylaxis Verified 04/29/25 11:15
environmental Allergy itching, Uncoded 04/29/25 11:15
asthma
gouda cheese Allergy Tongue Uncoded 04/29/25 11:15
Swelling
debra Allergy Shortness Uncoded 04/29/25 11:15
of Breath
seasonal allergies Allergy itching, Uncoded 04/29/25 11:15
asthma
�Medication �Instructions �Recorded
albuterol sulfate 90 mcg/actuation 2 puff inhalation R Q4HPRN PRN 09/06/17
aerosol inhaler asthma
ascorbic acid (vitamin C) 500 mg 500 mg PO DAILY 09/06/17
tablet (Vitamin C)
magnesium 250 mg tablet 250 mg PO HS 09/06/17
cholecalciferol (vitamin D3) 125 125 mcg PO DAILY 12/29/22
mcg (5,000 unit) tablet (Vitamin
D3)
cinnamon bark 500 mg capsule 500 mg PO DAILY 12/29/22
(Cinnamon)
fexofenadine 180 mg tablet 180 mg PO DAILY 12/29/22
fluticasone propionate 50 1 spray intranasal DAILY PRN 12/29/22
mcg/actuation nasal allergies
spray,suspension
pantoprazole 40 mg tablet,delayed 40 mg PO DAILY PRN stomach issues 12/29/22
release (Protonix)
vitamin B complex 1 tab PO DAILY 12/29/22
ondansetron 4 mg disintegrating 4 mg PO Q8H PRN nausea and 10/27/24
tablet vomiting 4 days #10 tabs
sucralfate 1 gram tablet (Carafate) 1 g PO ACHS PRN NAUSEA #30 tabs 10/27/24
diazepam 5 mg tablet (Valium) 5 mg PO TID PRN muscle spasm #12 10/28/24
tabs
hydrocodone 5 mg-acetaminophen 325 1 tab PO TID PRN Pain #12 tabs 10/28/24
mg tablet
acetaminophen 500 mg tablet 1,000 mg PO QID PRN pain 11/22/24
ibuprofen 200 mg tablet (Advil) 400 mg PO Q8H PRN pain 11/22/24
tranexamic acid 650 mg tablet 1,300 mg (2 x 650 mg) PO TID 5 11/27/24
days #30 tabs
Review of Systems
-
History Source: Patient
Constitutional: Reports Weight Loss and Fatigue
EENT: Reports No Symptoms
Respiratory: Reports No Symptoms
Cardiac: Reports No Symptoms
Abdomen/GI: Reports Abdominal Pain, Nausea (belching ), Diarrhea and Constipated
: Reports No Symptoms
Musculoskeletal: Reports No Symptoms
Neurological: Reports Weakness
Hematologic/Lymphatic: Reports No Symptoms
Vital Signs
Temp Pulse Resp BP Pulse Ox
98.5 F 85 15 116/93 100
04/29/25 11:15 04/29/25 11:30 04/29/25 11:30 04/29/25 11:18 04/29/25 11:30
Physical Exam
Exam
General: Well Developed, Well Nourished and Other (noted distress with pain )
HEENT: Normocephalic and Anicteric
Respiratory: Clear
Cardiac: Regular Rhythm
GI: Soft, Non Distended and Normal Bowel Sounds
Musculoskeletal: No Clubbing and No Cyanosis
Skin: Warm and Dry
Neuro: Awake, Alert and AO x 3
Psych: Calm
Results
WBC 8.6 10^3/uL (4.8-10.8) 04/29/25 11:22
Hgb 13.3 g/dL (12.0-16.0) 04/29/25 11:22
Hct 40.9 % (37.0-47.0) 04/29/25 11:22
MCV 88.0 fL (81.0-99.0) 04/29/25 11:22
Plt Count 389 10^3/uL (130-400) 04/29/25 11:22
Absolute Neuts (auto) 5.4 10^3/uL (1.4-6.5) 04/29/25 11:22
Sodium 134 mmol/L (135-145) L 04/29/25 11:22
Potassium 4.3 mmol/L (3.5-5.1) 04/29/25 11:22
Chloride 101 mmol/L (98-107) 04/29/25 11:22
Carbon Dioxide 23 mmol/L (22-30) 04/29/25 11:22
BUN 12 mg/dl (7-17) 04/29/25 11:22
Creatinine 0.7 mg/dL (0.6-1.0) 04/29/25 11:22
Calcium 9.9 mg/dl (8.4-10.2) 04/29/25 11:22
Total Bilirubin 0.7 mg/dl (0.2-1.3) 04/29/25 11:22
AST 26 U/L (14-36) 04/29/25 11:22
ALT 18 U/L (0-35) 04/29/25 11:22
Alkaline Phosphatase 95 U/L (38-126) 04/29/25 11:22
Lipase 87 U/L (23-300) 04/29/25 11:22
Diagnostic Image Results:
04/25/25 CT A/p
1. No acute findings within the abdomen or pelvis.
2. 2.6 cm left ovarian cyst.
3. Additional findings above.
11/7/25 US Abdomen Limited
No gallstones or pericholecystic fluid. No gallbladder wall thickening. Negative sonographic Kim sign. No bile duct dilatation. The common bile duct measures 3.1 mm.
Prior GI Procedures:
09/2023- EGD [facility] - Mild Schatzki ring. Dilated.
- Esophageal mucosal changes suggestive of
eosinophilic esophagitis.
- Erythematous mucosa in the antrum. Biopsied.
- Normal examined duodenum.
- Biopsies were taken with a cold forceps for
evaluation of eosinophilic esophagitis.
bx + h pylori mild to moderate chronic active gastritis, prominent lymphoid aggregate more c/w reflux then EOE for rx then breath test
11/2024 breath test +
09/2023 colon - bohning - Internal hemorrhoids.
- The examination was otherwise normal.
- No specimens collected.
Assessment / Plan
-
Pt is a 50-year-old female with past medical history of significant food allergies, IgE mediated allergies, oral hypersensitivity syndrome, asthma, anemia, prior D+ C, GERD, dysphagia, Schatzki's ring history of dilatation with last EGD 2023,
history of H. pylori status posttreatment however did not eradicate. Patient had allergic reaction to Pylera. Was then treated in the beginning of December with a combination of bismuth, tetracycline, metronidazole and pantoprazole twice daily. She was
seen in office follow up with Nayana Rudolph in March and recommended cont PPI BID, Pepcid and repeat H pylori testing with 2 week hold. She was holding PPI and went out to dinner last week with family had a burger and one ETOH drink with
onset of epigastric pain with fullness, belching. She was in ER 04/[address] and US with labs noted WBC 13,500, hbg 13,1, with normal LFT's and lipase. She now returns with continued epigastric abdominal pain and inability to eat.
She also admits to taking Advil til 1 month ago but denies GPL-1 or anticoagulation use. Also admits to increase Mariam use with recent worsening allergy symptoms.
-epigastric abdominal pain with decreased oral intake
-hx Hpylori non responsive to first treatment and retreatment in December await repeat testing
-dysphagia, Schatzki's ring history of dilatation with last EGD 2023
-GERD
other med problems:
food allergies, IgE mediated allergies, oral hypersensitivity syndrome, asthma, hx anemia with prior D+C
PLAN:
Etiology of pain related to PUD with hx H pylori and NSAID use, vs infectious etiology with symptoms after [facility] [employer] and [employer], esophagitis, EOE, SB related vs other
plan for EGD today
s/p gustavo quigley in ER with continued symptoms
eventual repeat H pylori testing to see if retreatment needed
cont Protonix and carafate for now as has been on prior to admission
if continued symptoms and EGD neg consider SB imaging
NPO
if diarrhea check stool studies
-
-
Thank you for consultation and allowing me to participate in the patient's care. Please call the organization development consultant GI physician during the after hours with any questions or concerns.
[2025-04-29] MEDS: BENTYL 10 MG PO (12:03)
[2025-04-29] MEDS: ZOFRAN 4 MG IV (13:28)
--- NOTE | 2025-04-29 13:49 | EDRN ---
this RN gave verbal report to the endoscopy laborer [employer]
--- NOTE | 2025-04-29 13:51 | HPS.HSE ---
Addendum entered and electronically signed by Felice Altman MD 04/29/25 16:27:
Seen and examined by me independently in collaboration with the medical collections specialist Dr. Kingsley.
Past medical history/social history/medication/allergies reviewed.
Lab data and imaging data reviewed.
Case was discussed with GI as well.
50-year-old patient with GI history significant for significant food allergies, oral hypersensitivity syndrome, Schatzki's ring requiring dilatation, H. pylori status posttreatment in November of this year presented with intractable GI symptoms of
nausea vomiting abdominal discomfort and loose stools.
She was on PPI and Pepcid and repeat H. pylori testing was planned so she was holding her antiacid medications for repeat H. pylori testing.
Last week, she went out to the family had a burger and 1 alcohol drink and then started to have loose stools of 7 episodes, epigastric pain with fullness, belching. She came into the ER had a CT of the abdomen pelvis, ultrasound of the abdomen and
labs and was discharged home.
She returns now with continued epigastric abdominal pain and the inability to eat. No diarrhea now.
She is now status post EGD and has mild abdominal discomfort. She is seen in PACU.
Afebrile and hemodynamically stable. Not tachycardic. On room air.
White count was normal on admission. LFTs were normal.
EGD showed esophageal mucosal changes concerning for eosinophilic esophagitis and the biopsies were taken. Nonobstructing Schatzki's was noted. Erythematous mucosa in the antrum was noted biopsy.
In view of still ongoing upper GI symptoms she is getting admitted to the hospital for IV PPI therapy, Pepcid and Carafate.
Continue with clear liquid diet and advance diet as able.
Original Note:
Family Physician
-
Family Physician: GLORIA Reid
Chief Complaint
-
Epigastric pain
History of Present Illness
50-year-old female with a past medical history of biliary colic as well as recurrent esophagitis, PUD and H. pylori (sees Dr. Andrews for gastroenterology) who presents to the emergency room for evaluation of abdominal pain. Patient was seen
earlier on 04/25/2025 in the ER for similar complaints - labs, CT, ultrasound; imaging was essentially nondiagnostic she was discharged on Protonix 40 mg twice daily and Carafate. Her symptoms have not improved since then and her pain has been
worsening, was not able to tolerate any food/beverage. Patient reports having nausea but no vomiting. Reports having 7 pound weight loss in the past week. She was earlier seen by her PCP who referred back to the ER. Patient denies any chest
pain, fever/chills, hematemesis, melena, hematochezia.
Patient was off of her PPI briefly for H. pylori testing.
ED course�patient afebrile, hemodynamically stable. Labs unremarkable except for mild hyponatremia at 134. GI was consulted, further imaging studies held.patient was taken to endoscopy as recommended by GI.
Medical History
Past Medical History
Past Medical History: Reports Other ( GERD (Schazki ring needed dilatation several times, esophageal spasms) and Other (numerous food allergies))
Past Surgical History: Reports Other (Schazki ring needed dilatation several times, hysteroscopy, D&C)
Social History
Tobacco: Non-smoker
Alcohol: None
Drug: None
Personal:
Living: With Family
Employment: Employed
Family History
Family History: Not pertinent
Allergies / Home Medications
Allergies reflects when Allergies were last updated in [facility] [employer].
Home Medications with original date entered in [facility] [employer]
Allergy/Medication List:
Allergies
Allergy/AdvReac Type Severity Reaction Status Date / Time
asparagus Allergy Itching Verified 04/29/25 11:15
egg Allergy Tongue Verified 04/29/25 11:15
Swelling
Fish Containing Products Allergy Anaphylaxis Verified 04/29/25 11:15
mold Allergy Shortness Verified 04/29/25 11:15
of Breath
mushroom Allergy Itching Verified 04/29/25 11:15
sunflower seed Allergy Anaphylaxis Verified 04/29/25 11:15
tree nut Allergy Anaphylaxis Verified 04/29/25 11:15
environmental Allergy itching, Uncoded 04/29/25 11:15
asthma
gouda cheese Allergy Tongue Uncoded 04/29/25 11:15
Swelling
debra Allergy Shortness Uncoded 04/29/25 11:15
of Breath
seasonal allergies Allergy itching, Uncoded 04/29/25 11:15
asthma
Home Medications
albuterol sulfate 90 mcg/actuation aerosol inhaler 2 puff inhalation R Q4HPRN PRN asthma 09/06/17
ascorbic acid (vitamin C) 500 mg tablet (Vitamin C) 500 mg PO DAILY 09/06/17
magnesium 250 mg tablet 250 mg PO HS 09/06/17
cholecalciferol (vitamin D3) 125 mcg (5,000 unit) tablet (Vitamin D3) 125 mcg PO DAILY 12/29/22
cinnamon bark 500 mg capsule (Cinnamon) 500 mg PO DAILY 12/29/22
fexofenadine 180 mg tablet 180 mg PO DAILY 12/29/22
fluticasone propionate 50 mcg/actuation nasal spray,suspension 1 spray intranasal DAILY PRN allergies 12/29/22
pantoprazole 40 mg tablet,delayed release (Protonix) 40 mg PO DAILY PRN stomach issues 12/29/22
vitamin B complex 1 tab PO DAILY 12/29/22
ondansetron 4 mg disintegrating tablet 4 mg PO Q8H PRN nausea and vomiting 4 days #10 tabs 10/27/24
sucralfate 1 gram tablet (Carafate) 1 g PO ACHS PRN NAUSEA #30 tabs 10/27/24
diazepam 5 mg tablet (Valium) 5 mg PO TID PRN muscle spasm #12 tabs 10/28/24
hydrocodone 5 mg-acetaminophen 325 mg tablet 1 tab PO TID PRN Pain #12 tabs 10/28/24
acetaminophen 500 mg tablet 1,000 mg PO QID PRN pain 11/22/24
ibuprofen 200 mg tablet (Advil) 400 mg PO Q8H PRN pain 11/22/24
tranexamic acid 650 mg tablet 1,300 mg (2 x 650 mg) PO TID 5 days #30 tabs 11/27/24
Review of Systems
-
A 12 point ROS was completed and negative except as noted: Yes
Physical Exam
Vital Signs
Vital Signs
Temp Pulse Resp BP Pulse Ox
98.5 F 67 20 115/72 98
04/29/25 11:15 04/29/25 13:49 04/29/25 13:49 04/29/25 13:49 04/29/25 13:49
Physical Exam
General: No Apparent Distress
HEENT: NormoCephalic and Atraumatic
Respiratory: Clear
Cardiac: S1/S2 and Regular Rhythm
GI: Soft, Non Distended, Normal Bowel Sounds and Tender (Epigastric tenderness)
Skin: Warm and Dry
Neuro: Awake, Alert, Oriented and AO x 3
Psych: Calm
Laboratory Results
-
04/29/25 11:22
04/29/25 11:22
Laboratory Results
Total Bilirubin 0.7 mg/dl (0.2-1.3) 04/29/25 11:22
AST 26 U/L (14-36) 04/29/25 11:22
ALT 18 U/L (0-35) 04/29/25 11:22
Alkaline Phosphatase 95 U/L (38-126) 04/29/25 11:22
Lipase 87 U/L (23-300) 04/29/25 11:22
Impression/Plan
-
IMPRESSION: 50-year-old with history of GERD presenting with epigastric abdominal pain.
PLAN:
#Epigastric abdominal pain
Likely due to gastritis, PUD, GERD, gastroparesis
GI was already consulted by the ER physician
She was taken to endoscopy
As per GI recommendations IV Protonix twice daily
Start Carafate 4 times daily
Famotidine 40 nightly
Clear liquids for today
Endoscopy report�Esophageal mucosal changes consistent with eosinophilic
esophagitis.
- Biopsies were taken with a cold forceps for evaluation of
eosinophilic esophagitis.
- Non-obstructing Schatzki ring.
- Erythematous mucosa in the antrum. Biopsied.
- Normal examined duodenum. Biopsied.
#Adenomyosis
#Uterine bleeding
Patient is off of tranexamic acid
Continue to monitor
#Low back pain/muscle spasm/sciatica
Continue diazepam as needed
#Allergies
Continue Flonase
Diet�clear liquids
DVT prophylaxis�SCDs
Full code
--- NOTE | 2025-04-29 16:45 | PTCARENOTE ---
Pt received from the PACU via stretcher. Transport was w/o incident. Pt is AAOx3, HR reg/irreg., lungs are clear, resp. easy, VSS, Pt is afebrile. Pt rates her pain as mild to moderated comes in waves. Tylenol given as ordered and Pt instructed to
notify nursing staff if pain increases. Pt instructed on plan of care. Pt verbalized understanding of instructions. Call merchant is within reach.
[2025-04-29] MEDS: TYLENOL 1000 MG PO (17:17)
[2025-04-29] MEDS: CLARITIN 10 MG PO (17:17)
[2025-04-29] MEDS: CARAFATE SUSPENSION 1 GM PO ×2 (17:56→22:36)
[2025-04-29] MEDS: NSS (PRESERVATIVE FREE) 10 ML IV (19:26)
[2025-04-29] MEDS: PROTONIX IV 40 MG IV (19:27)
[2025-04-29] MEDS: PEPCID 20 MG IV (22:34)
[2025-04-29] MEDS: NSS (PRESERVATIVE FREE) 8 ML IV (22:34)
[2025-04-30 03:25] VITALS: BP 92/51
[2025-04-30 07:25] VITALS: BP 91/53
[2025-04-30] MEDS: CLARITIN 10 MG PO (07:58)
[2025-04-30] MEDS: VITAMIN D3 (cholecalciferol) 125 MCG PO (07:58)
[2025-04-30] MEDS: NSS (PRESERVATIVE FREE) 10 ML IV ×2 (07:58→19:47)
[2025-04-30] MEDS: PROTONIX IV 40 MG IV ×2 (07:58→19:47)
[2025-04-30] MEDS: B COMPLEX w/VITAMIN C 1 CAPLET PO (07:58)
[2025-04-30] MEDS: CARAFATE SUSPENSION 1 GM PO ×4 (08:00→21:09)
[2025-04-30] MEDS: TYLENOL 1000 MG PO (08:11)
[2025-04-30 08:33] LABS: Hematocrit 39.5 % (37.0-47.0); Hemoglobin 12.4 g/dL (12.0-16.0); Mean Corp Hgb Conc. 31.4 g/dL (33.0-37.0); Mean Corpuscular Volume 90.4 fL (81.0-99.0); Nucleated Red Blood Cells % 0 %; Platelet Count 383 10^3/uL (130-400); Red Cell Dist. Width 14.2 % (11.5-14.5)
--- NOTE | 2025-04-30 08:55 | W.PN.GI.CBS2 ---
Addendum entered and electronically signed by Britney Martin Do, MD 04/30/25 13:35:
I saw and examined the patient.
The VICTIM WITNESS ADMINISTRATOR's note was reviewed and I agree with the note.
Comment: She continues to have chest discomfort worse with bending forward or deep breaths. Pain is 5 out of 10 . No appetite to eat. Vitals stable 94% on RA. CTAB NTTP. Labs reviewed
Impression
- CT chest PE neg
- Start fluticasone swallowed BID (hold breath, swallow no liquids/food 30mins post)
- Await pathology
- Consider OP eohilia vs dupixent pending above
- Will d/w Dr Andrews her OP GI
- C/w PPI and H2B IV
- Advance to regular diet to avoid food intolerances
Will follow with you
Original Note:
Today's Communication / Plan
-
Etiology of pain related to infectious etiology with symptoms after eating at [employer] and [employer], esophagitis, EOE , SB related vs other
pt now with feeling of chest/esophageal pain with sweats overnight
s/p EGD as noted
for CT chest Pe protocol
if neg consider rx for EOE with topical glucocorticoid therapy
eventual repeat H pylori testing to see if retreatment needed
cont Protonix BID and carafate AC/HS and Pepcid at HS
cont clear diet-- consider advance later if feeling improved
if diarrhea check stool studies
reviewed with nursing staff and Dr. Altman
Assessment / Plan
-
Pt is a 50-year-old female with past medical history of significant food allergies, IgE mediated allergies, oral hypersensitivity syndrome, asthma, anemia, prior D+ C, GERD, dysphagia, Schatzki's ring history of dilatation with last EGD 2023,
history of H. pylori status posttreatment however did not eradicate. Patient had allergic reaction to Pylera. Was then treated in the beginning of December with a combination of bismuth, tetracycline, metronidazole and pantoprazole twice daily. She was
seen in office follow up with Nayana Rudolph in March and recommended cont PPI BID, Pepcid and repeat H pylori testing with 2 week hold. She was holding PPI and went out to dinner last week with family had a burger and one ETOH drink with
onset of epigastric pain with fullness, belching. She was in ER 04/[address] and US with labs noted WBC 13,500, hbg 13,1, with normal LFT's and lipase. She now returns with continued epigastric abdominal pain and inability to eat.
She also admits to taking Advil til 1 month ago but denies GPL-1 or anticoagulation use. Also admits to increase Mariam use with recent worsening allergy symptoms.
04/29/[address] Grewal
- Esophageal mucosal changes consistent with eosinophilic
esophagitis.
- Biopsies were taken with a cold forceps for evaluation of
eosinophilic esophagitis.
- Non-obstructing Schatzki ring.
- Erythematous mucosa in the antrum. Biopsied.
- Normal examined duodenum. Biopsied.
-chest/esophageal pain with feeling of spasm
-epigastric abdominal pain with decreased oral intake
-hx H pylori non responsive to first treatment and retreatment in December await repeat testing
-dysphagia, Schatzki's ring history of dilatation with last EGD 2023
-GERD
other med problems:
food allergies, IgE mediated allergies, oral hypersensitivity syndrome, asthma, hx anemia with prior D+C
PLAN:
Etiology of pain related to infectious etiology with symptoms after eating at burger and beer, esophagitis, EOE , SB related vs other
pt now with feeling of chest/esophageal pain with sweats overnight
s/p EGD as noted
for CT chest Pe protocol
if neg consider rx for EOE with topical glucocorticoid therapy
eventual repeat H pylori testing to see if retreatment needed
cont Protonix BID and carafate AC/HS and Pepcid at HS
cont clear diet-- consider advance later if feeling improved
if diarrhea check stool studies
reviewed with nursing staff and Dr. Altman
Subjective
Subjective
Date of Service: April 30, 2025
pt felt better last PM then woke up with sweats and esophageal spasm/chest pain 5-11/26 with pain in back, epigastric pain improved on clear diet not feeling like she wants to advance , feeling like she cannot take deep breath,
Objective
Data Reviewed
Laboratory Data:
Laboratory Results
04/30/25 08:08
Laboratory Results
Total Bilirubin 0.7 mg/dl (0.2-1.3) 04/29/25 11:22
AST 26 U/L (14-36) 04/29/25 11:22
ALT 18 U/L (0-35) 04/29/25 11:22
Alkaline Phosphatase 95 U/L (38-126) 04/29/25 11:22
Lipase 87 U/L (23-300) 04/29/25 11:22
Vital Signs and I&O:
Vital Signs
Temp Pulse Resp BP Pulse Ox
97.9 F 71 16 91/53 99
04/30/25 07:25 04/30/25 07:25 04/30/25 07:25 04/30/25 07:25 04/30/25 07:25
I&O
04/29/25 04/30/25 05/01/25
06:59 06:59 06:59
Intake Total 240 / 240
Balance 240 / 240
Physical Exam
Physical Exam
HEENT: Anicteric, Moist mucous membranes and Other (appears more comfortable than when seen in ER 04/29 )
Cardiology: Normal Sinus Rhythm
Pulmonary: Clear
GI: Soft, Non Distended and Non Tender
Extremities: No Edema
Neuro: Non Focal
[2025-04-30 09:44] LABS: ALT (SGPT) 15 U/L (0-35); AST (SGOT) 24 U/L (14-36); Albumin 4.5 g/dl (3.5-5.0); Alkaline Phosphatase 91 U/L (38-126); Blood Urea Nitrogen 13 mg/dl (7-17); Calcium 9.5 mg/dl (8.4-10.2); Carbon Dioxide 17 mmol/L (22-30); Chloride 106 mmol/L (98-107); Estimated Creatinine Clearance 81 ml/min; Glucose 52 mg/dl (70-99); Potassium 4.7 mmol/L (3.5-5.1); Sodium 137 mmol/L (135-145); Total Protein 7.5 g/dl (6.3-8.2); eGFR > 60.00
[2025-04-30 09:54] LABS: Glucose - Point of Care 55 mg/dl (70-99)
[2025-04-30 10:17] LABS: Glucose - Point of Care 72 mg/dl (70-99)
[2025-04-30 12:15] VITALS: BP 116/59
[2025-04-30 12:25] LABS: Glucose - Point of Care 88 mg/dl (70-99)
--- NOTE | 2025-04-30 12:36 | CM ---
Initial assessment completed with patient who lives with her and 2 of her children, 26 y/o girl and 13 y/o boy, in a 2 story home with B/B on 2nd and 1/2 bath on 1st with 2 steps to enter. [employer]UST[employer] patient was independent in ADL's and ambulation,
drives, works as an ER nurse at [employer]. No DME or in-home services. No HC-POA. No VA benefits. No psychiatric hospitalizations. PCP is with [facility] - Pamela CASTRO. Pharmacy is [facility] in [employer] in [place]. Discharge POC:
Anticipate home with no needs.
--- NOTE | 2025-04-30 13:01 | W.PN.HOSP.TC ---
Today's Communication/Plan
-
CW clear liquids ;advance as able
CW IV PPI ,pepcid, carafate
Assessment / Plan
Assessment / Plan
Intractable nausea, epigastric pain and fullness with belching
History of Schatzki's ring requiring dilatation
History of esophageal esophagitis.
History of recent H. pylori infection status posttreatment
Status post EGD 04/29
- Esophageal mucosal changes consistent with eosinophilic
esophagitis.
- Biopsies were taken with a cold forceps for evaluation of
eosinophilic esophagitis.
- Non-obstructing Schatzki ring.
- Erythematous mucosa in the antrum. Biopsied.
- Normal examined duodenum. Biopsied
Patient currently unable to try solid food. She is symptomatic even with liquids. Hesitant to for the diet to be advanced.
This morning she had chest discomfort requiring an EKG and CT of the chest. EKG did not suggest any acute ischemia. CT of the chest showed no evidence of PE. Suspect her symptomatology is from her upper GI tract/esophagus.
Continue with IV PPI, IV Pepcid and Carafate.
GI input regarding use of steroids for esophageal esophagitis noted. If continued symptoms may be a trial of steroids is warranted.
Asthma-no flare
History of multiple food allergies
Full code
[facility] GI
Portions of this chart may have been created with voice recognition software. Occasional wrong word or 'sound alike' substitutions may have occurred due to the inherent limitations of voice recognition software.
Anticipated Discharge: > 48 hours
Subjective/Interval History
-
Date of Service: April 30, 2025
She was okay in the evening and slept till 230 but then she got this chest discomfort lasting intermittently for many hours. This morning when she took a sip of fluid it intensified in the central chest going to the back and to the left side. She
is hesitant to eat because of the fear of further precipitation of pain.
Denies any shortness of breath. No prior history of heart disease or lung disease.
She feels that is her GI track/esophageal in origin.
Objective Data
-
Labs:
Laboratory Results
04/30/25
08:08
WBC 9.9
Hgb 12.4
Hct 39.5
Plt Count 383
Sodium 137
Potassium 4.7
Chloride 106
Carbon Dioxide 17 L
BUN 13
Creatinine 0.8
Glucose 52 L*
Calcium 9.5
Total Bilirubin 0.6
AST 24
ALT 15
Alkaline Phosphatase 91
Vital Signs:
Vital Signs
Temp Pulse Resp BP Pulse Ox
97.8 F 69 16 116/59 99
04/30/25 12:15 04/30/25 12:15 04/30/25 12:15 04/30/25 12:15 04/30/25 12:15
I&O
04/29/25 04/30/25 05/01/25
06:59 06:59 06:59
Intake Total 240 / 240 120 / 120
Balance 240 / 240 120 / 120
Physical Exam
-
General: Comfortable
Respiratory: Clear to Auscultation and Non Labored Respirations; Negative Accessory Resp Muscle Use
Cardiac: Regular Rhythm and S1/S2; Negative Tachycardic
GI: Soft, Nontender, Nondistended and Normal Bowel Sounds
Neuro: AO x 3
Psych: Calm
Data Reviewed
-
CT Scan: Report Reviewed by me (CT chest)
Medical Tests (Nuc Med, Echo etc): Report Reviewed by me (EKG)
Labs: Labs Reviewed by me
--- NOTE | 2025-04-30 13:22 | W.PN.HOSP.TC ---
Today's Communication/Plan
-
Continue with IV PPI
Continue with Pepcid, Carafate
Advance diet as tolerable
Assessment / Plan
Assessment / Plan
Intractable nausea, epigastric pain and fullness with belching
History of Schatzki's ring requiring dilatation
History of esophageal esophagitis.
History of recent H. pylori infection status posttreatment
Status post EGD 04/29
- Esophageal mucosal changes consistent with eosinophilic
esophagitis.
- Biopsies were taken with a cold forceps for evaluation of
eosinophilic esophagitis.
- Non-obstructing Schatzki ring.
- Erythematous mucosa in the antrum. Biopsied.
- Normal examined duodenum. Biopsied
Patient currently unable to try solid food. She is symptomatic even with liquids. Hesitant to for the diet to be advanced.
This morning she had chest discomfort requiring an EKG and CT of the chest. EKG did not suggest any acute ischemia. CT of the chest showed no evidence of PE. Suspect her symptomatology is from her upper GI tract/esophagus.
Continue with IV PPI, IV Pepcid and Carafate.
GI input regarding use of steroids for esophageal esophagitis noted. If continued symptoms may be a trial of steroids is warranted.
Asthma-no flare
History of multiple food allergies
Full code
[facility] GI
Portions of this chart may have been created with voice recognition software. Occasional wrong word or 'sound alike' substitutions may have occurred due to the inherent limitations of voice recognition software.
Anticipated Discharge: > 48 hours
Subjective/Interval History
-
Date of Service: April 30, 2025
Objective Data
-
Labs:
Laboratory Results
04/30/25
08:08
WBC 9.9
Hgb 12.4
Hct 39.5
Plt Count 383
Sodium 137
Potassium 4.7
Chloride 106
Carbon Dioxide 17 L
BUN 13
Creatinine 0.8
Glucose 52 L*
Calcium 9.5
Total Bilirubin 0.6
AST 24
ALT 15
Alkaline Phosphatase 91
Vital Signs:
Vital Signs
Temp Pulse Resp BP Pulse Ox
97.8 F 69 16 116/59 99
04/30/25 12:15 04/30/25 12:15 04/30/25 12:15 04/30/25 12:15 04/30/25 12:15
I&O
04/29/25 04/30/25 05/01/25
06:59 06:59 06:59
Intake Total 240 / 240 120 / 120
Balance 240 / 240 120 / 120
[2025-04-30 15:15] VITALS: BP 106/66
[2025-04-30 16:27] LABS: Glucose - Point of Care 50 mg/dl (70-99)
[2025-04-30] MEDS: DEXTROSE 50% SYRINGE 12.5 GRAMS IV (16:50)
[2025-04-30] MEDS: D5/0.45%NACL 1000 IV (17:14)
[2025-04-30 17:18] LABS: Glucose - Point of Care 120 mg/dl (70-99)
--- NOTE | 2025-04-30 17:19 | W.PN.UPDATE ---
Update Note
Progress Note Update
saw pt with update with prior testing-- CT neg also reviewed adding Fluticasone with instructions per nursing. She currently has FBS down to 50 getting D 50 and IVF. Compazine added for nausea and dry heaves and will also add hyoscyamine PRN for
spasm. Updated pt, family and nursing staff.
[2025-04-30] MEDS: COMPAZINE 10 MG IV (17:23)
[2025-04-30] MEDS: LEVSIN 0.125 MG PO (18:29)
--- NOTE | 2025-04-30 18:41 | PTCARENOTE ---
Pt blood sugar at 1625 resulted at 50 mg/dl. Pt responsive but drowsy and diaphoretic. BP 106/65, HR 86, SpO2 100% on room air. Hospitalist and Cross coverage notified. Pt unable to tolerate PO intake at this time. Verbal order obtained for 12.5g
Dextrose 50% IV, which was administered through RAC PIV. Repeat blood sugar 120 mg/dl. Pt started on d5/0.45%NaCl continuous infusion. PRN IV Compazine 10mg ordered and given for nausea. Pt currently resting in bed. Pt stating she ' feels much
better'. Family at bedside, call merchant in reach.
[2025-04-30 19:17] LABS: Glucose - Point of Care 108 mg/dl (70-99)
[2025-04-30] MEDS: FLOVENT 220 MCG INHALER 2 PUFF INH (19:26)
[2025-04-30] MEDS: NSS (PRESERVATIVE FREE) 8 ML IV (21:09)
[2025-04-30] MEDS: PEPCID 20 MG IV (21:10)
[2025-04-30 21:29] LABS: Glucose - Point of Care 100 mg/dl (70-99)
[2025-04-30 23:10] VITALS: BP 102/62
[2025-05-01] MEDS: D5/0.45%NACL 1000 IV (03:10)
[2025-05-01 03:11] LABS: Glucose - Point of Care 85 mg/dl (70-99)
[2025-05-01 07:00] VITALS: BP 105/68
[2025-05-01 07:17] LABS: Glucose - Point of Care 83 mg/dl (70-99)
[2025-05-01] MEDS: FLOVENT 220 MCG INHALER 2 PUFF INH ×2 (07:36→20:50)
[2025-05-01] MEDS: CLARITIN 10 MG PO (08:58)
[2025-05-01] MEDS: CARAFATE SUSPENSION 1 GM PO ×4 (08:58→22:31)
[2025-05-01] MEDS: NSS (PRESERVATIVE FREE) 10 ML IV ×2 (08:59→19:39)
[2025-05-01] MEDS: PROTONIX IV 40 MG IV ×2 (08:59→19:40)
[2025-05-01] MEDS: LEVSIN 0.125 MG PO ×2 (09:06→17:12)
--- NOTE | 2025-05-01 09:22 | W.PN.HOSP.TC ---
Today's Communication/Plan
-
Advance diet as able
Continue with current treatments .if persistent oral intolerance consider systemic steroids.
Duplex ultrasound of the arms to evaluate for subclavian artery stenosis
Assessment / Plan
Assessment / Plan
Intractable nausea, epigastric pain and fullness with belching
History of Schatzki's ring requiring dilatation
History of esophageal esophagitis.
History of recent H. pylori infection status posttreatment
Status post EGD 04/29
- Esophageal mucosal changes consistent with eosinophilic
esophagitis.
- Biopsies were taken with a cold forceps for evaluation of
eosinophilic esophagitis.
- Non-obstructing Schatzki ring.
- Erythematous mucosa in the antrum. Biopsied.
- Normal examined duodenum. Biopsied
Patient currently with poor tolerance of oral intake. She is symptomatic even with liquids. Hesitant to for the diet to be advanced.
EKG did not suggest any acute ischemia. CT of the chest showed no evidence of PE, aortic dissection. Suspect her symptomatology of lower chest discomfort going to the back is from her upper GI tract/esophagus.
Continue with IV PPI, IV Pepcid and Carafate.
GI input regarding use of steroids for esophageal esophagitis noted. Steroid inhalers introduced by GI.
Blood pressure discrepancy noted. Left radial artery weaker than right. Duplex arterial ultrasound of her arms requested.
Episode of hypoglycemia secondary to poor oral intake. Continue with IV fluids with dextrose until oral intake is adequate
Asthma-no flare
History of multiple food allergies
Full code
Discussed with RN
Portions of this chart may have been created with voice recognition software. Occasional wrong word or 'sound alike' substitutions may have occurred due to the inherent limitations of voice recognition software.
Anticipated Discharge: 24 - 48 hours
Subjective/Interval History
-
Date of Service: May 01, 2025
Still with poor oral intolerance.
Liquids bringing on discomfort and pain still not ready for solids.
Blood sugars dropped yesterday due to poor oral intake.
Objective Data
-
Vital Signs:
Vital Signs
Temp Pulse Resp BP Pulse Ox
98.5 F 76 14 105/68 98
05/01/25 07:00 05/01/25 07:39 05/01/25 07:39 05/01/25 07:00 05/01/25 07:39
I&O
04/30/25 05/01/25 05/02/25
06:59 06:59 06:59
Intake Total 240 / 240 1800 / 1800
Balance 240 / 240 1800 / 1800
Physical Exam
-
General: No Apparent Distress
HEENT: Moist Mucous Membranes
Respiratory: Non Labored Respirations; Negative Accessory Resp Muscle Use
Cardiac: Regular Rhythm, S1/S2 and Other (weaker radial pulse in left arm); Negative Tachycardic
GI: Soft, Nontender, Nondistended and Normal Bowel Sounds
Neuro: AO x 3
Psych: Calm
Data Reviewed
-
Labs: Labs Reviewed by me
[2025-05-01 10:40] VITALS: BP 115/65; BP 116/60
[2025-05-01 11:39] LABS: Glucose - Point of Care 83 mg/dl (70-99)
--- NOTE | 2025-05-01 13:08 | W.PN.GI.CBS2 ---
Today's Communication / Plan
-
C/w swallowed fluticasone. Discussed correct way of taking
Messaged pharmacy to see if can get budesonide slurry inpatient
Adv diet as tolerates
Will follow with you
Assessment / Plan
-
Pt is a 50-year-old female with past medical history of significant food allergies, IgE mediated allergies, oral hypersensitivity syndrome, asthma, anemia, prior D+ C, GERD, dysphagia, Schatzki's ring history of dilatation with last EGD 2023,
history of H. pylori status posttreatment however did not eradicate. Patient had allergic reaction to Pylera. Was then treated in the beginning of December with a combination of bismuth, tetracycline, metronidazole and pantoprazole twice daily. She was
seen in office follow up with Nayana Rudolph in March and recommended cont PPI BID, Pepcid and repeat H pylori testing with 2 week hold. She was holding PPI and went out to dinner last week with family had a burger and one ETOH drink with
onset of epigastric pain with fullness, belching. She was in ER 04/[address] and US with labs noted WBC 13,500, hbg 13,1, with normal LFT's and lipase. She now returns with continued epigastric abdominal pain and inability to eat.
She also admits to taking Advil til 1 month ago but denies GPL-1 or anticoagulation use. Also admits to increase Mariam use with recent worsening allergy symptoms.
04/29/[address] Grewal
- Esophageal mucosal changes consistent with eosinophilic
esophagitis.
- Biopsies were taken with a cold forceps for evaluation of
eosinophilic esophagitis.
- Non-obstructing Schatzki ring.
- Erythematous mucosa in the antrum. Biopsied.
- Normal examined duodenum. Biopsied.
Impression
-chest/esophageal pain with feeling of spasm
-epigastric abdominal pain with decreased oral intake
-hx H pylori non responsive to first treatment and retreatment in December await repeat testing
-dysphagia, Schatzki's ring history of dilatation with last EGD 2023
-GERD
other med problems:
food allergies, IgE mediated allergies, oral hypersensitivity syndrome, asthma, hx anemia with prior D+C
Recommendations
- C/w PPI IV BID
- C/w pepcid 40mg QHS
- Add baclofen PRN esophageal spasm
- Stop fluticasone swallowed. Reviewed mechanism of hold breath, swallow, exhale and no drink/food 30mins post swallowing oral steroid
- Message sent to inpatient pharmacy to see if we can get budesonide slurry mixed
- Results of CT chest d/w pt and
- Await results of EGD bx. Close FU with Dr Juliana RICHARDSON basis
Will follow with you
Subjective
Subjective
Date of Service: May 01, 2025
Her epigastric pain slightly improved. Tolerating some CLD but still not eating well. Got valium yesterday and was too sleepy.
Objective
Data Reviewed
Laboratory Data:
Laboratory Results
04/30/25 08:08
04/30/25 08:08
Laboratory Results
Total Bilirubin 0.6 mg/dl (0.2-1.3) 04/30/25 08:08
AST 24 U/L (14-36) 04/30/25 08:08
ALT 15 U/L (0-35) 04/30/25 08:08
Alkaline Phosphatase 91 U/L (38-126) 04/30/25 08:08
Lipase 87 U/L (23-300) 04/29/25 11:22
Vital Signs and I&O:
Vital Signs
Temp Pulse Resp BP Pulse Ox
98.5 F 67 14 116/60 98
05/01/25 07:00 05/01/25 10:40 05/01/25 07:39 05/01/25 10:40 05/01/25 07:39
I&O
04/30/25 05/01/25 05/02/25
06:59 06:59 06:59
Intake Total 240 / 240 1800 / 1800
Balance 240 / 240 1800 / 1800
Physical Exam
Physical Exam
GEN: No acute distress, conversant, pleasant
HEENT: anicteric, extraocular movements intact, clear oropharynx without exudates
GI: soft, non-distended, epigastric mildly tender to palpation, normal active bowel sounds, no hepatosplenomegaly
EXT: warm, well perfused, trace edema bilaterally
NEURO: AAOx3, non-focal
--- NOTE | 2025-05-01 13:51 | CM ---
Diagnostic workup continues. Discharge POC: Anticipate home with no needs. Will continue to follow for possible needs as workup continues.
[2025-05-01 15:00] VITALS: BP 113/75
[2025-05-01] MEDS: PULMICORT 0.5 MG S ×2 (16:21→20:51)
[2025-05-01 16:50] LABS: Glucose - Point of Care 92 mg/dl (70-99)
[2025-05-01 21:34] LABS: Glucose - Point of Care 93 mg/dl (70-99)
[2025-05-01] MEDS: NSS (PRESERVATIVE FREE) 8 ML IV (22:31)
[2025-05-01] MEDS: PEPCID 20 MG IV (22:31)
[2025-05-01 23:00] VITALS: BP 111/64
--- NOTE | 2025-05-02 05:51 | W.PN.GI.CBS2 ---
Today's Communication / Plan
-
Improving from a GI standpoint since starting Budesonide and prior Flovent. Recommend starting full liquids this AM and may ADAT. Continue rest of medications as outlined below. If continued improvement later this afternoon, may be discharged from
GI standpoint but defer to primary team. Needs close f/u with GI as an outpatient. Will sign-off, please re-contact with any questions or concerns.
Assessment / Plan
-
Pt is a 50-year-old female with past medical history of significant food allergies, IgE mediated allergies, oral hypersensitivity syndrome, asthma, anemia, prior D+ C, GERD, dysphagia, Schatzki's ring history of dilatation with last EGD 2023,
history of H. pylori status posttreatment however did not eradicate. Patient had allergic reaction to Pylera. Was then treated in the beginning of December with a combination of bismuth, tetracycline, metronidazole and pantoprazole twice daily. She was
seen in office follow up with Nayana Rudolph in March and recommended cont PPI BID, Pepcid and repeat H pylori testing with 2 week hold. She was holding PPI and went out to dinner last week with family had a burger and one ETOH drink with
onset of epigastric pain with fullness, belching. She was in ER 04/[address] and US with labs noted WBC 13,500, hbg 13,1, with normal LFT's and lipase. She now returns with continued epigastric abdominal pain and inability to eat.
She also admits to taking Advil til 1 month ago but denies GPL-1 or anticoagulation use. Also admits to increase Mariam use with recent worsening allergy symptoms.
04/29/[address] Grewal
- Esophageal mucosal changes consistent with eosinophilic
esophagitis.
- Biopsies were taken with a cold forceps for evaluation of
eosinophilic esophagitis.
- Non-obstructing Schatzki ring.
- Erythematous mucosa in the antrum. Biopsied.
- Normal examined duodenum. Biopsied.
Impression
-chest/esophageal pain with feeling of spasm
-epigastric abdominal pain with decreased oral intake
-hx H pylori non responsive to first treatment and retreatment in December await repeat testing
-dysphagia, Schatzki's ring history of dilatation with last EGD 2023
-GERD
other med problems:
food allergies, IgE mediated allergies, oral hypersensitivity syndrome, asthma, hx anemia with prior D+C
Recommendations:
- Advance diet to full liquids and then may advance as tolerated today
- Continue empiric PPI BiD and Pepcid 40 mg qhs for maximal acid suppression
- No longer on fluticasone, would continue Budesonide slurry (Pulmicort) 0.5 mg BiD for her suspected EoE and given her improving symptoms
- Path still pending from EGD, will be followed up by Dr. Grewal as an oupatient
- May continue Baclofen as needed for suspected esophageal spasms
- Continue pain control and anti-emetics PRN. Strict avoidance of all NSAIDs
- Recommend close follow-up with her primary [facility] Usher, Dr. Andrews, as an outpatient
- Rest of care as per primary team
If patient continues to improve and tolerate advancement of diet, may be discharged from a GI perspective but ultimately defer to primary team. Discussed with primary internal medicine team this AM. GI will sign-off, please re-contact with any
questions or concerns.
Subjective
Subjective
Date of Service: May 02, 2025
- No acute events overnight
- Path still pending from EGD
Reports feeling better after Flovent and Budesonide slurry. Less epigastric pain and tolerating CLD without difficulty. No other nausea/vomiting, dysphagia or other concerning symptoms. Hoping to try more solid food later today and potentially going
home. Discussed her previous EGD findings as well, path results still pending.
Objective
Data Reviewed
Laboratory Data:
Laboratory Results
04/30/25 08:08
Laboratory Results
Total Bilirubin 0.6 mg/dl (0.2-1.3) 04/30/25 08:08
AST 24 U/L (14-36) 04/30/25 08:08
ALT 15 U/L (0-35) 04/30/25 08:08
Alkaline Phosphatase 91 U/L (38-126) 04/30/25 08:08
Lipase 87 U/L (23-300) 04/29/25 11:22
Vital Signs and I&O:
Vital Signs
Temp Pulse Resp BP Pulse Ox
98.1 F 64 16 111/64 98
05/01/25 23:00 05/01/25 23:00 05/01/25 23:00 05/01/25 23:00 05/01/25 23:00
I&O
04/30/25 05/01/25 05/02/25
06:59 06:59 06:59
Intake Total 240 / 240 1800 / 1800 480 / 480
Balance 240 / 240 1800 / 1800 480 / 480
Physical Exam
Physical Exam
HEENT: Anicteric and Moist mucous membranes
Pulmonary: Other (Normal WOB on room air)
GI: Soft, Non Distended and Non Tender
Extremities: Warm
Neuro: Non Focal
[2025-05-02 07:35] VITALS: BP 95/61
[2025-05-02] MEDS: PULMICORT 0.5 MG S (08:13)
[2025-05-02] MEDS: PROTONIX IV 40 MG IV (08:36)
[2025-05-02] MEDS: NSS (PRESERVATIVE FREE) 10 ML IV (08:37)
[2025-05-02 09:06] LABS: Blood Urea Nitrogen 5 mg/dl (7-17); Calcium 9.6 mg/dl (8.4-10.2); Carbon Dioxide 26 mmol/L (22-30); Chloride 105 mmol/L (98-107); Estimated Creatinine Clearance 93 ml/min; Glucose 79 mg/dl (70-99); Potassium 4.1 mmol/L (3.5-5.1); Sodium 135 mmol/L (135-145); eGFR > 60.00
[2025-05-02] MEDS: CLARITIN 10 MG PO (09:30)
[2025-05-02] MEDS: CARAFATE SUSPENSION 1 GM PO ×2 (09:30→11:54)
--- NOTE | 2025-05-02 10:30 | W.DCSUMMARY ---
Discharge Summary
Discharge Data
Date of Admission: 04/29/25
Date of Discharge: 05/02/25
-
Pending Results: Yes (Esophageal/duodenal biopsies)
Hospital Course
Primary diagnosis:
Chest/esophageal pain with feeling of spasm
Epigastric abdominal pain with decreased oral intake
Bilateral arm blood pressure discrepancy with mildly increased velocities in the left subclavian artery
Secondary diagnosis:
History H pylori non responsive to first treatment and retreatment in December await repeat testing
Dysphagia, Schatzki's ring history of dilatation with last EGD 2023
Gastroesophageal reflux disease
Multiple food allergies
Asthma
Hospital course:
Patient with above medical history presented with acute onset of epigastric pain with fullness, belching. It happened after she went out for dinner had a burger and 1 alcoholic drink. She recently had ER visit with GI symptoms are stable CT and
ultrasound with normal LFTs and lipase. She returned back with continued epigastric pain and inability to eat. She also had increased Mariam use with recent worsening allergy symptoms.
Her symptoms was quite significant and she was getting chest and esophageal pains with feeling of spasm even with liquids. She went on to have an endoscopy. Biopsies of the esophagus and duodenum are pending. Below is the report of the EGD
- Esophageal mucosal changes consistent with eosinophilic
esophagitis.
- Biopsies were taken with a cold forceps for evaluation of
eosinophilic esophagitis.
- Non-obstructing Schatzki ring.
- Erythematous mucosa in the antrum. Biopsied.
- Normal examined duodenum. Biopsied.
. Prior biopsies of the esophagus which showed increased eosinophil count - Barre may be reflux related. With the current symptomatology and findings she was started on budesonide orally. She had improvement with the symptoms.
We are also waiting on repeat biopsies of esophagus and the duodenum and H. pylori testing. She recently finished H. pylori testing.
She will follow-up with GI as an outpatient.
While she is here she had an inconsistent discrepancies in the blood pressure readings of the arms. The left lower than the right. Duplex ultrasound of the upper extremity showed some mildly increased velocity in the proximal to mid subclavian
artery but could not assess the proximal artery on this ultrasound. Advised her to follow-up with vascular as she would need probably a CTA.
Today she was tolerating diet which was advanced. Without nausea vomiting. Denies any new symptoms.
Afebrile. Pulse 78. Blood pressure 95/61.
Abdomen soft.
Medically stable for discharge today.
Consultants on board:
GI-Britney Cortes
Portions of this chart may have been created with voice recognition software. Occasional wrong word or 'sound alike' substitutions may have occurred due to the inherent limitations of voice recognition software.
Discharge Plan
-
Patient Disposition: Home (Routine Discharge)
Referrals:
Pamela Vuong CRNP [Family Provider, Internal Medicine] - in less than 1 week
Britney Grewal MD [Active, Gastroenterology] - in two to three weeks
Francois Cox MD [Active, Vascular Surgery] - 06/06/25 11:30 am
Referral Note: Vascular surgery office appt
Additional Discharge Medication Instructions: open pulmicort respules and mix 2mL with 1
tablespoon of yogurt. Swallow twice daily and do
not eat/drink for 30mins afterwards
Rinse, gargle, and expectorate after use.
Prescriptions:
New
sucralfate 100 mg/mL Suspension
1 g PO ACHS Qty: 400 0RF
famotidine [Pepcid] 20 mg tablet
20 mg PO DAILY Qty: 30 0RF
budesonide 0.5 mg/2 mL Suspension For Nebulization
0.5 mg irrigation BID Qty: 60 0RF
Rx Instructions:
Take as directed orally
Continued
ascorbic acid (vitamin C) [Vitamin C] 500 MG tablet
500 mg PO DAILY
magnesium 250 MG tablet
250 mg PO HS
albuterol sulfate 1 PUFF HFA aerosol inhaler
2 puff inhalation R Q4HPRN PRN (Reason: asthma)
fexofenadine 180 mg Tablet
180 mg PO DAILY
vitamin B complex Tablet
1 tab PO DAILY
fluticasone propionate 50 mcg/actuation Paul,Suspension
1 spray INTRANASAL DAILY PRN (Reason: allergies)
cinnamon bark [Cinnamon] 500 mg Capsule
500 mg PO DAILY
cholecalciferol (vitamin D3) [Vitamin D3] 125 mcg (5,000 unit) Tablet
125 mcg PO DAILY
ondansetron 4 mg tablet,disintegrating
4 mg PO Q8H PRN (Reason: nausea and vomiting) 4 Days Qty: 10 0RF
hydrocodone-acetaminophen 5-325 mg tablet
1 tab PO TID PRN (Reason: Pain) Qty: 12 0RF
diazepam [Valium] 5 mg tablet
5 mg PO TID PRN (Reason: muscle spasm) Qty: 12 0RF
Rx Instructions:
Took 2.5
acetaminophen 500 mg Tablet
1,000 mg PO QID PRN (Reason: pain)
Changed
pantoprazole [Protonix] 40 mg Tablet,Delayed Release (Dr/Ec)
40 mg PO BID Qty: 60 0RF
tranexamic acid 650 mg tablet
1,300 mg PO TID PRN (Reason: bleeding) 5 Days Qty: 0 0RF
Discontinued
sucralfate [Carafate] 1 gram tablet
1 g PO ACHS PRN (Reason: NAUSEA) Qty: 30 0RF
ibuprofen [Advil] 200 mg Tablet
400 mg PO Q8H PRN (Reason: pain)
Discharge Orders:
Discharge Patient (As Directed); Ordered 05/02/25
Ordered By: Felice Altman
Discharge Date and Time
Print Language: TUNISIAN
--- NOTE | 2025-05-02 10:39 | CM ---
patient seen at bedside
full liq diet ADAT
no needs
PLAN: home, no needs
drove self/has alternative of son if needed
[2025-05-02 11:30] VITALS: BP 117/87
== END 2025-05-02 13:15 | disposition home or self-care (01) | DRG 392 ==
LOC: 2 SOUTH 15:34
PROVIDERS: Student in an Organized Health Care Education/Training Program; ADMITTING PHYSICIAN Internal Medicine; CONSULT PHYSICIAN Internal Medicine Gastroenterology; EMERGENCY PHYSICIAN Emergency Medicine; FAMILY PHYSICIAN Nurse Practitioner Adult Health
PROC: 0DB48ZX Excision of Esophagogastric Junction, Via Natural or Artificial Opening Endoscopic, Diagnostic (ICD-10-PCS; 2025-04-29)
PROC: 0DB18ZX Excision of Upper Esophagus, Via Natural or Artificial Opening Endoscopic, Diagnostic (ICD-10-PCS; 2025-04-29)
PROC: 0DB98ZX Excision of Duodenum, Via Natural or Artificial Opening Endoscopic, Diagnostic (ICD-10-PCS; 2025-04-29)
PROC: 0DB68ZX Excision of Stomach, Via Natural or Artificial Opening Endoscopic, Diagnostic (ICD-10-PCS; 2025-04-29)
DX: K20.0 Eosinophilic esophagitis (principal); E87.1 Hypo-osmolality and hyponatremia; K21.9 Gastro-esophageal reflux disease without esophagitis; R07.89 Other chest pain; N80.03 Adenomyosis of the uterus; M54.40 Lumbago with sciatica, unspecified side; K22.2 Esophageal obstruction; N93.9 Abnormal uterine and vaginal bleeding, unspecified; K22.89 Other specified disease of esophagus; K31.89 Other diseases of stomach and duodenum; F32.A Depression, unspecified; F41.9 Anxiety disorder, unspecified; J45.909 Unspecified asthma, uncomplicated; Z79.899 Other long term (current) drug therapy
CPT/HCPCS: 71275; 80048; 80053; 82962; 83690; 85025; 88305; 88342; 93005; 93931; 94640; 96361; 96374; 99284; J7627; Q9967

== ENCOUNTER → 2025-05-28 08:58 | Outpatient (REF) | payer BC, SELFPAY | LOC: RCS 08:58 | PROVIDERS: ATTENDING PHYSICIAN Internal Medicine Cardiovascular Disease; FAMILY PHYSICIAN Nurse Practitioner Adult Health | DX: R07.89 Other chest pain (principal); R06.02 Shortness of breath | CPT/HCPCS: 93306 ==

== ENCOUNTER → 2025-06-06 12:12 | Outpatient (REF) | payer BC, SELFPAY ==
[2025-06-06 12:58] LABS: Hematocrit 36.7 % (37.0-47.0); Hemoglobin 12.1 g/dL (12.0-16.0); Mean Corp Hgb Conc. 33.0 g/dL (33.0-37.0); Mean Corpuscular Volume 86.4 fL (81.0-99.0); Nucleated Red Blood Cells % 0 %; Platelet Count 339 10^3/uL (130-400); Red Cell Dist. Width 14.9 % (11.5-14.5)
[2025-06-06 16:22] LABS: ALT (SGPT) 17 U/L (0-35); AST (SGOT) 23 U/L (14-36); Albumin 4.7 g/dl (3.5-5.0); Alkaline Phosphatase 63 U/L (38-126); Blood Urea Nitrogen 10 mg/dl (7-17); Calcium 9.7 mg/dl (8.4-10.2); Carbon Dioxide 23 mmol/L (22-30); Chloride 103 mmol/L (98-107); Glucose 92 mg/dl (70-99); Potassium 3.9 mmol/L (3.5-5.1); Sodium 136 mmol/L (135-145); Total Protein 7.5 g/dl (6.3-8.2); eGFR > 60.00
== END ==
LOC: REG 12:12
PROVIDERS: ATTENDING PHYSICIAN Internal Medicine; FAMILY PHYSICIAN Nurse Practitioner Adult Health
DX: T80.59XA Anaphylactic reaction due to other serum, initial encounter (principal); Z91.010 Allergy to peanuts; Z91.0110 Allergy to milk products, unspecified
CPT/HCPCS: 36415; 80053; 82785; 83520; 85025; 86003

== ENCOUNTER → 2025-06-09 12:49 | Outpatient (REF) | payer BC, SELFPAY | LOC: RCS 12:49 | PROVIDERS: ATTENDING PHYSICIAN Internal Medicine Cardiovascular Disease; FAMILY PHYSICIAN Nurse Practitioner Adult Health | DX: R07.89 Other chest pain (principal) | CPT/HCPCS: 93017 ==